=== PATIENT | female | born 1985 | race Hispanic/Latino ===

== ENCOUNTER 2018-11-22 20:38 | Emergency (ER) | payer SELFPAY ==
[2018-11-22] MEDS ORDERED: NA CHLORIDE 0.9% 1,000 ML ONE ×2 (21:40→23:24)
[2018-11-22 22:02] LABS: Urine Blood NEGATIVE (NEG); Urine Glucose 2+ (NEG); Urine Protein NEGATIVE (NEG)
[2018-11-22 22:07] LABS: Absolute Lymphocytes (CBC) 2.6 K/uL (0.7-4.9); Basophils % 0.6 % (0-1.3); Hematocrit 36.4 % (36.0-45.0); Lymphocytes % 48.1 % (15.3-44.8); MPV 9.1 fL (7.6-11.3)
[2018-11-22 22:15] LABS: Urine Bacteria <20 /HPF (<20); Urine Culture Reflex Order NOT NEEDED; Urine RBC <5 /HPF (NONE SEEN)
--- NOTE | 2018-11-22 22:33 | RAD REPORT ---
EXAM DESCRIPTION: RAD - Chest Pa And Lat (2 Views) - 11/22/2018 9:46 pm CLINICAL HISTORY: headache Chest pain. COMPARISON: No comparisons FINDINGS: The lungs are clear. The heart is normal in size. No displaced fractures. IMPRESSION: No acute or concerning finding suspected.
[2018-11-22 22:41] LABS: BUN Blood Urea Nitrogen 9 mg/dL (7-18); Bicarbonate 28 mmol/L (21-32); Glucose Level 150 mg/dL (74-106); Potassium 3.4 mmol/L (3.5-5.1); Sodium Level 143 mmol/L (136-145); Thyroid Stimulating Hormone 0.843 uIU/mL (0.360-3.740)
[2018-11-22] MEDS ORDERED: METOCLOPRAMIDE 5 MG TAB ONE (23:24)
--- NOTE | 2018-11-22 23:59 | EDPHYS ---
Physician Documentation [facility] Name: Ruby Araujo Age: 33 yrs Sex: Female : 1985 Arrival Date: 11/22/2018 Time: 20:43 Bed 15 Private MD: ED Physician Sean Mae HPI: 11/22 23:10 This 33 yrs old Female presents to ER via Ambulatory with complaints of snw Headache. 23:10 The patient complains of pain to the right latter day and left latter day. The patient snw describes the headache as a pressure. Onset: The symptoms/episode began/occurred usually during . Associated signs and symptoms: Pertinent positives: Photophobia sinus tenderness, blurred vision. Severity of symptoms: At its worst the pain was moderate. Headache History: Denies prior headaches. The patient has not experienced similar symptoms in the past. The patient has not recently seen a physician. 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 - Social history:: Smoking status: Patient/guardian denies using tobacco. - Ebola Screening: : No symptoms or risks identified at this time. ROS: 23:08 Constitutional: Negative for fever, chills, and weight loss, Eyes: Negative for injury, snw pain, redness, and discharge, sometimes see waves like heat rising from the pavement ENT: Negative for injury, pain, and discharge, feels pressure in her ears during child Neck: Negative for injury, pain, and swelling, Cardiovascular: Negative for chest pain, palpitations, and edema, Respiratory: Negative for shortness of breath, cough, wheezing, and pleuritic chest pain, Abdomen/GI: Negative for abdominal pain, nausea, vomiting, diarrhea, and constipation, Back: Negative for injury and pain, : Negative for injury, bleeding, discharge, and swelling, MS/Extremity: Negative for injury and deformity, Skin: Negative for injury, rash, and discoloration. 23:08 Neuro: Positive for facial pressure at bilateral temples. Exam: 23:07 Constitutional: This is a well developed, well nourished patient who is awake, alert, snw and in no acute distress. Head/Face: Normocephalic, atraumatic. Eyes: Pupils equal round and reactive to light, extra-ocular motions intact. Lids and lashes normal. Conjunctiva and sclera are non-icteric and not injected. Cornea within normal limits. Periorbital areas with no swelling, redness, or edema. ENT: Nares patent. No nasal discharge, no septal abnormalities noted. Tympanic membranes are normal and external auditory canals are clear. Oropharynx with no redness, swelling, or masses, exudates, or evidence of obstruction, uvula midline. Mucous membranes moist. Neck: Trachea midline, no thyromegaly or masses palpated, and no cervical lymphadenopathy. Supple, full range of motion without nuchal rigidity, or vertebral point tenderness. No Meningismus. Chest/axilla: Normal chest wall appearance and motion. Nontender with no deformity. No lesions are appreciated. Cardiovascular: Regular rate and rhythm with a normal S1 and S2. No gallops, murmurs, or rubs. Normal PMI, no JVD. No pulse deficits. Respiratory: Lungs have equal breath sounds bilaterally, clear to auscultation and percussion. No rales, rhonchi or wheezes noted. No increased work of breathing, no retractions or nasal flaring. Abdomen/GI: Soft, non-tender, with normal bowel sounds. No distension or tympany. No guarding or rebound. No evidence of tenderness throughout. Back: No spinal tenderness. No costovertebral tenderness. Full range of motion. Skin: Warm, dry with normal turgor. Normal color with no rashes, no lesions, and no evidence of cellulitis. MS/ Extremity: Pulses equal, no cyanosis. Neurovascular intact. Full, normal range of motion. Psych: Awake, alert, with orientation to person, place and time. Behavior, mood, and affect are within normal limits. 23:07 Neuro: Orientation: is normal, Mentation: is normal, Memory: is normal, Cranial nerves: grossly normal, Cerebellar function: is grossly normal, Sensation: is normal, Babinski testing is normal, seizure activity, is not displayed by the patient. Vital Signs: 21:03 BP 148 / 101; Pulse 91; Resp 16; Temp 97.5; Pulse Ox 100% on R/A; Weight 79.38 kg (R); ak1 Height 5 ft. 0 in. (152.40 cm); Pain 5/10; 22:00 BP 132 / 80; Pulse 77; Resp 16; Pulse Ox 99% on R/A; aa1 23:00 BP 135 / 82; Pulse 73; Resp 16; Temp 97.7; Pulse Ox 99% on R/A; Pain 3/10; aa1 11/23 00:33 BP 141 / 88; Pulse 79; Resp 16; Temp 97.4; Pulse Ox 98% on R/A; Pain 2/10; aa1 11/22 21:03 Body Mass Index 34.18 (79.38 kg, 152.40 cm) ak1 [place] Coma Score: 00:00 Eye Response: spontaneous(4). Verbal Response: oriented(5). Motor Response: obeys snw commands(6). Total: 15. MDM: 11/22 21:18 Patient medically screened. snw 11/23 00:00 Data reviewed: vital signs, nurses notes. Data interpreted: Pulse oximetry: on room air snw is 99 %. Interpretation: normal. Response to treatment: the patient's symptoms have markedly improved after treatment. Special discussion: I have referred the patient to see his PCP for further evaluation of high blood pressure. Based on the history and exam findings, there is no indication for further emergent testing or inpatient evaluation. I discussed with the patient/guardian the need to see the primary care provider for further evaluation of the symptoms. 11/22 21:17 Order name: Urine Microscopic Only; Complete Time: 22:19 snw 11/22 21:17 Order name: CBC with Diff; Complete Time: 22:13 snw 11/22 21:17 Order name: Chem 7; Complete Time: 22:48 snw 11/22 21:44 Order name: Urine Dipstick--Ancillary (enter results); Complete Time: 22:06 mw2 11/22 21:44 Order name: Urine --Ancillary (enter results); Complete Time: 22:06 mw2 11/22 21:17 Order name: Urine Test (obtain specimen); Complete Time: 21:43 snw 11/22 21:17 Order name: Urine Dipstick-Ancillary (obtain specimen); Complete Time: 21:43 snw 11/22 21:17 Order name: Chest Pa And Lat (2 Views) XRAY; Complete Time: 22:48 snw 11/22 22:10 Order name: Thyroid Stimulating Hormone; Complete Time: 22:48 EDMS Administered Medications: 11/22 21:45 Drug: NS 0.9% 1000 ml Route: IV; Rate: 1 bolus; Site: right antecubital; aa1 22:15 Follow up: IV Status: Completed infusion; IV Intake: 1000ml aa1 23:42 Drug: NS 0.9% 1000 ml Route: IV; Rate: 1 bolus; Site: right antecubital; aa1 11/23 00:35 Follow up: IV Status: Completed infusion; IV Intake: 800ml aa1 11/22 23:42 Drug: Reglan 10 mg Route: PO; aa1 11/23 00:30 Follow up: Response: No adverse reaction; Pain is decreased aa1 Disposition: 04:11 Co-signature as Attending Physician, Sean Mae MD. Disposition: 11/22/18 23:58 Discharged to Home. Impression: Headache, Volume depletion, Glucosuria. - Condition is Stable. - Discharge Instructions: Dehydration, Adult, General Headache Without Cause, Hypertension, Blood Glucose Monitoring, Adult, Rehydration, Adult, Form - Blood Pressure Record Sheet. - Work release form, Medication Reconciliation Form, Thank You Letter, Antibiotic Education, Prescription Opioid Use form. - Follow up: Private Physician; When: 2 - 3 days; Reason: Recheck today's complaints, Continuance of care, Re-evaluation by your physician. Follow up: Emergency Department; When: As needed; Reason: Worsening of condition. Signatures: Dispatcher [employer] [facility] Annalee Castro RN RN aa1 Joya Figueroa, ASSEMBLER ERECTOR-C ASSEMBLER ERECTOR-Csnw Cassy Welsh RN RN ak1 Sean Mae MD MD Corrections: (The following items were deleted from the chart) 11/22 21:21 21:17 Urine Test ordered. [facility] aa 22:09 22:08 THYROID STIMULAT HORMONE+C.LAB.BRZ ordered. [facility] 11/23 00:42 11/22 23:58 11/22/2018 23:58 Discharged to Home. Impression: Headache; Volume aa1 depletion; Glucosuria. Condition is Stable. Forms are Medication Reconciliation Form, Thank You Letter, Antibiotic Education, Prescription Opioid Use. Follow up: Private Physician; When: 2 - 3 days; Reason: Recheck today's complaints, Continuance of care, Re-evaluation by your physician. Follow up: Emergency Department; When: As needed; Reason: Worsening of condition. snw
--- NOTE | 2018-11-22 23:59 | ER ---
Nurse's Notes [facility] Name: Ruby Araujo Age: 33 yrs Sex: Female : 1985 Arrival Date: 11/22/2018 Time: 20:43 Bed 15 Private MD: Diagnosis: Headache;Volume depletion;Glucosuria Presentation: 11/22 21:00 Presenting complaint: Patient states: headache intermittent to forehead X2 weeks. pt ak1 c/o bilateral ear pain when nursing. Transition of care: patient was not received from another setting of care. Onset of symptoms is unknown. Risk Assessment: Do you want to hurt yourself or someone else? Patient reports no desire to harm self or others. Initial Sepsis Screen: Does the patient meet any 2 criteria? No. Patient's initial sepsis screen is negative. Does the patient have a suspected source of infection? No. Patient's initial sepsis screen is negative. Care prior to arrival: None. 21:00 Method Of Arrival: Ambulatory ak1 21:00 Acuity: SANDRO 3 ak1 Triage Assessment: 21:03 General: Appears uncomfortable, well groomed, Behavior is calm, cooperative. Neuro: ak1 Level of Consciousness is awake, alert, obeys commands, Oriented to person, place, time, situation, Nipple Maker are equal bilaterally Moves all extremities. 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 - Social history:: Smoking status: Patient/guardian denies using tobacco. - Ebola Screening: : No symptoms or risks identified at this time. Screenin:30 Abuse screen: Denies threats or abuse. Denies injuries from another. Nutritional aa1 screening: No deficits noted. Tuberculosis screening: No symptoms or risk factors identified. Fall Risk None identified. Assessment: 21:30 General: Appears in no apparent distress. comfortable, Behavior is calm, cooperative, aa1 appropriate for age. Pain: Complains of pain in left bahai and right bahai Quality of pain is described as aching, throbbing, Is continuous. Neuro: Level of Consciousness is awake, alert, obeys commands, Oriented to person, place, time, situation, Moves all extremities. Full function Gait is steady, Speech is normal, Pupils are PERRLA, Reports headache. Respiratory: Airway is patent Respiratory effort is even, unlabored, Respiratory pattern is regular, symmetrical. GI: No signs and/or symptoms were reported involving the gastrointestinal system. : No signs and/or symptoms were reported regarding the genitourinary system. EENT: No signs and/or symptoms were reported regarding the EENT system. Derm: Skin is intact, is healthy with good turgor, Skin is pink, warm \T\ dry. Musculoskeletal: Circulation, motion, and sensation intact. Capillary refill < 3 seconds. 22:18 Reassessment: Patient appears in no apparent distress at this time. Patient and/or aa1 family updated on plan of care and expected duration. Pain level reassessed. Patient is alert, oriented x 3, equal unlabored respirations, skin warm/dry/pink. Awaiting lab results. 23:44 Reassessment: Patient appears in no apparent distress at this time. Patient and/or aa1 family updated on plan of care and expected duration. Pain level reassessed. Patient is alert, oriented x 3, equal unlabored respirations, skin warm/dry/pink. Pt reports headache has improved. 2nd liter bolus infusing. 11/23 00:33 Reassessment: Patient appears in no apparent distress at this time. Patient is alert, aa1 oriented x 3, equal unlabored respirations, skin warm/dry/pink. Discussed d/c \T\ f/u instructions with pt; denies questions or concerns at this time. Ambulatory to lobby with steady gait. Patient states feeling better. Patient states symptoms have improved. Vital Signs: 11/22 21:03 BP 148 / 101; Pulse 91; Resp 16; Temp 97.5; Pulse Ox 100% on R/A; Weight 79.38 kg (R); ak1 Height 5 ft. 0 in. (152.40 cm); Pain 5/10; 22:00 BP 132 / 80; Pulse 77; Resp 16; Pulse Ox 99% on R/A; aa1 23:00 BP 135 / 82; Pulse 73; Resp 16; Temp 97.7; Pulse Ox 99% on R/A; Pain 3/10; aa1 11/23 00:33 BP 141 / 88; Pulse 79; Resp 16; Temp 97.4; Pulse Ox 98% on R/A; Pain 2/10; aa1 11/22 21:03 Body Mass Index 34.18 (79.38 kg, 152.40 cm) ak1 [place] Coma Score: 00:00 Eye Response: spontaneous(4). Verbal Response: oriented(5). Motor Response: obeys snw commands(6). Total: 15. ED Course: 11/22 20:43 Patient arrived in ED. cf2 21:01 Triage completed. ak1 21:03 Arm band placed on Patient placed in an exam room, Patient notified of wait time. ak1 21:18 Joya Figueroa FNP-C is [facility]. snw 21:18 Sean Mae MD is Attending Physician. snw 21:18 Annalee Castro, AMEYA is Primary Nurse. aa1 21:30 Patient has correct armband on for positive identification. Bed in low position. Call aa1 light in reach. Pulse ox on. NIBP on. Warm blanket given. 21:42 Initial lab(s) drawn, by me, sent to lab. Urine collected: clean catch specimen, clear, jd2 Amount Voided: 250mL. Inserted saline lock: 20 gauge in right antecubital area, using aseptic technique. Blood collected. 21:47 Chest Pa And Lat (2 Views) XRAY In Process Unspecified. EDMS 22:11 Lab(s) recollected, by me, sent to lab. aa1 11/23 00:33 No provider procedures requiring assistance completed. IV discontinued, intact, aa1 bleeding controlled, No redness/swelling at site. Pressure dressing applied. Administered Medications: 11/22 21:45 Drug: NS 0.9% 1000 ml Route: IV; Rate: 1 bolus; Site: right antecubital; aa1 22:15 Follow up: IV Status: Completed infusion; IV Intake: 1000ml aa1 23:42 Drug: NS 0.9% 1000 ml Route: IV; Rate: 1 bolus; Site: right antecubital; aa1 11/23 00:35 Follow up: IV Status: Completed infusion; IV Intake: 800ml aa1 11/22 23:42 Drug: Reglan 10 mg Route: PO; aa1 11/23 00:30 Follow up: Response: No adverse reaction; Pain is decreased aa1 Intake: 11/22 22:15 IV: 1000ml; Total: 1000ml. aa1 11/23 00:35 IV: 800ml; Total: 1800ml. aa1 Outcome: 11/22 23:58 Discharge ordered by MD. glover 11/23 00:33 Discharged to home ambulatory, with significant other. aa1 Condition: good Discharge instructions given to patient, significant other, Instructed on discharge instructions, follow up and referral plans. medication usage, Demonstrated understanding of instructions, follow-up care, medications. 00:42 Patient left the ED. aa1 Signatures: Dispatcher [employer] EDMS Annalee Castro RN RN aa1 Joya Figueroa, SUSTAINABILITY PROJECT COORDINATOR-C SUSTAINABILITY PROJECT COORDINATOR-Csnw Cassy Welsh RN RN ak1 Aracelis Lindsey Celesta cf2 Corrections: (The following items were deleted from the chart) 11/22 21:13 21:00 Presenting complaint: Patient states: headache intermittent to forehead X2 weeks. ak1 pt c/o bilateral ear pain when . ak1
[2018-11-23 01:46] VITALS: BP 141/88; TEMP 97.4; O2SAT 98
== END 2018-11-23 00:42 | disposition home or self-care (01) ==
LOC: ER 20:38
DX: R51 Headache (principal); E86.9 Volume depletion, unspecified; R81 Glycosuria
CPT/HCPCS: 36415; 71046; 80048; 81003; 81015; 81025; 84443; 85025; 96360; 99284; J7030

== ENCOUNTER 2019-12-24 22:00 | Emergency (ER) | payer SELFPAY ==
--- OUTSIDE RECORDS SUMMARY | 2019-12-24 22:03 | XMS REPORT | Summary of Care ---
:1985 Author Organization [facility] - Health Address [address] [place] [address] Care Team Providers Name Role Phone Maxim Osei [facility] Primary Care Provider Encounter Details Date Type Department Care Team Description 08/24/2019 Orders Only [facility] Doctor Unassigned, No [address] [facility] [place] [address] [address] [id number] Allergies No Known Allergiesdocumented as of this encounter (statuses as of 11/16/2019) Medications Medication Sig Dispensed Refills Start Date End Date Status hydroCHLOROthiazide 50 mg Take 50 mg by 0 Active tablet mouth daily. norethindrone 0.35 mg Take 1 tablet 3 Package 3 08/11/2019 Active tabletIndications: by mouth control counseling daily. 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 09/09/2019 Elevated blood pressure reading without diagnosis of h ypertension 08/24/2019 Well woman exam 06/09/2018 Contraceptive management 06/09/2018 Obesity (BMI 30-39.9) 03/30/2018 Tetanus, diphtheria, and acellular pertussis (Tdap) va ccination declined 03/03/2018 History of anxiety 09/02/2017 Other depression 03/12/2017 documented as of this encounter (statuses as of 11/16/2019) Resolved Problems Problem Noted Date Resolved Date Routine follow-up 05/17/2018 06/09/2018 Postoperative state 04/30/2018 06/09/2018 Overview: S/p primary on 04/23/2018 Mild preeclampsia 04/30/2018 05/17/2018 Headache 04/23/2018 06/09/2018 Blurry vision 04/23/2018 04/30/2018 38 weeks gestation of 04/23/2018 05/01/19 19 Neck pain 04/16/2018 04/30/2018 Gestational hypertension affecting sixth 9 04/30/2018 Nausea vomiting and diarrhea 04/02/2018 04/30/2018 Dyspepsia 04/02/2018 04/30/2018 Constipation during 03/31/2018 04/30/2018 Need for Tdap vaccination 03/03/2018 04/30/2018 Anemia of mother in , antepartum 02/05/2018 04/30/2018 Acute midline low back pain without sciatica 11/25/2017 06/09/2018 Abnormal maternal glucose tolerance, antepartum 09/03/2017 04/30/2018 Overview: passed 3hr Multiparity 09/02/2017 05/17/2018 Supervision of high-risk 09/02/201704/30 Fatigue 03/12/2017 09/02/2017 Mastitis, left, acute 01/21/2017 09/02/2017 Bruising 12/01/2016 09/02/2017 Well woman exam 04/30/2016 09/02/2017 Obesity affecting 04/30/2016 04/30/2018 anemia 04/10/2016 05/05/2017 Encounter for other general counseling or advice on 04/10/19 17 09/02/2017 contraception Dizziness 04/10/2016 04/10/2016 care and examination of lactating mother 04/10/19 17 04/30/2016 Liveborn infant, of [place] , born in hospital by 03/13/2016 04/10/2016 vaginal delivery Anemia affecting in third trimester 03/13/2016 04/10/2016 35 weeks gestation of 03/12/2016 04/10/19 17 Pelvic pressure in , antepartum, third trimester 03/13/2016 Pain of round ligament affecting , antepartum 02/1403/13/2016 Dizziness and giddiness 01/08/2016 03/13/2016 Abnormal maternal glucose tolerance, antepartum 12/26/2015 03/13/2016 Overview: Abnormal 28w 1hr GTT, PASSED 3HR Constipation during 10/23/2015 03/13/2016 Glucosuria 09/19/2015 03/13/2016 Anxiety 08/21/2015 09/02/2017 Multiparity 08/02/2015 04/10/2016 Supervision of high risk , antepartum 08/02/2015 03/13/2016 History of delivery, currently 08/02/2015 08/02/2015 Obesity affecting 08/02/2015 04/10/2016 History of oligohydramnios in prior , currently 03/13/2016 LGSIL (low grade squamous intraepithelial lesion) on Pap sme ar 03/18/2010 08/02/2015 Overview: Refer 6 wk pp to colpo documented as of this encounter (statuses as of 11/16/2019) Immunizations Name Administration Dates Next Due Rubella 08/22/2009 TDAP 12/25/2015 (Deferred: Patient Refused) Td 02/16/2007 documented as of this encounter Social History Tobacco Use Types Packs/Day Years Used Date Never Smoker Smokeless Tobacco: Never Used Comments: denies smoke exposure Alcohol Use Drinks/Week oz/Week Comments No 0 Standard drinks or equivalent 0.0 Sex Assigned at Date Recorded Not on file COVID-19 Exposure Response Date Recorded In the last month, have you been in contact with No / Unsure 09/09/2019 10:44 AM CDT someone who was confirmed or suspected to have Coronavirus / COVID-19? documented as of this encounter Last Filed Vital Signs Not on filedocumented in this encounter Plan of Treatment Health Maintenance Due Date Last Done Comments INFLUENZA VACCINE (#1) 2019 DTaP,Tdap,and Td Vaccines 03/01/2020 02/16/2007 Postpo stacie from (1 - Tdap) 06/07/2002 ([place]) Depression Screening 08/10/2020 08/11/2019, 08/11/2019 PAP SMEAR 08/10/2022 08/11/2019, 06/29/2014, 06/27/2013, Additional history exists PNEUMOCOCCAL 0-64 YEARS Aged Out No longe r eligible COMBINED SERIES based on patient 's age to complete this topic documented as of this encounter Procedures Procedure Name Priority Date/Time Associated Diagnosis Comme nts PATIENT QUESTIONNAIRE Routine 08/24/2019 12:01 AM CDT documented in this encounter Results Not on filedocumented in this encounter Insurance Payer Benefit Plan / Subscriber ID Effective Dates Phone Addre ss Type Group RMP FAMILY FAMILY PLANNING [id number] 2018-Pres [facility] Agency PLANNING DEANDRA DEANDRA [phone]% ent [id number] [place] [address] documented as of this encounter Advance Directives Type Date Recorded Patient Rn Progressive Care Explanati on Advance Directives and Living Will Power of Netting Weaver Name Relationship Healthcare Agent Communication Relationship Brent Cullen Spouse Health Care Agent Gonzalo Araujo Father [facility] Care Agent (Mobile) Ciara Bartono Mother [facility] Care [phone] Agent (Mobile)
--- OUTSIDE RECORDS SUMMARY | 2019-12-24 22:03 | XMS REPORT | Continuity of Care Document ---
:1985 Author Organization [facility] t Address [address] [place] [address] Care Team Providers Name Role Phone Scout SHAVER Attending Clinician Juany JENSEN Attending Clinician Resident Rory Attending Clinician Unavailable Doctor Unassigned, Name Attending Clinician Unavailable Problems This patient has no known problems. Allergies, Adverse Reactions, Alerts This patient has no known allergies or adverse reactions. Medications This patient has no known medications. Procedures This patient has no known procedures. Encounters Start End Encounter Admission Attending Care Care Encounter Source Date/Time Date/Time Type Type Clinicians Facility Department ID 2019-10-27 2019-10-27 Telephone NADYA Butterfield [id number] 00:00:00 00:00:00 [facility] [id number] [facility] [id number] 2019-10-04 2019-10-04 Telephone NADYA Harrington [id number] 00:00:00 00:00:00 [facility] [id number] [facility] [id number] 113 2019-09-19 2019-09-19 Telephone NADYA Butterfield [id number] 00:00:00 00:00:00 [facility] [id number] [facility] [id number] 113 2019-09-12 2019-09-12 [facility] [id number] 00:00:00 00:00:00 [facility] [id number] [facility] [id number] 2019-09-09 2019-09-09 Office [facility] [id number] 10:47:23 12:32:[address] [facility] [id number] [facility] [id number] 2019-08-24 2019-08-24 Orders Doctor AUDREY [id number] 00:00:00 00:00:00 Only Unassigned, [facility] [id number] [place] [facility] [id number] Results This patient has no known results.
--- OUTSIDE RECORDS SUMMARY | 2019-12-24 22:03 | XMS REPORT | Summary of Care ---
:1985 Author Organization [facility] Address [address] [place] [address] Care Team Providers Name Role Phone [facility] Reason for Visit Reason Comments Rx Concern/Question Encounter Details Date Type Department Care Team Description 10/27/2019 Telephone [facility] Natalie Butterfield FN P Rx Concern/Question [address], [address] [place] [address] [place] [address] Allergies No Known Allergiesdocumented as of this encounter (statuses as of 11/09/2019) Medications Medication Sig Dispensed Refills Start Date End Date Status hydroCHLOROthiazide 50 mg Take 50 mg by 0 Active tablet mouth daily. norethindrone 0.35 mg Take 1 tablet 3 Package 3 08/11/2019 Active tabletIndications: by mouth control counseling daily. hydroCHLOROthiazide 25 mg Take 1 tablet 30 tablet 1 09/09/2019 Active tabletIndications: by mouth Hypertension, unspecified daily. type lisinopril 10 mg Take 1 tablet 30 tablet 1 09/09/2019 Active tabletIndications: by mouth Hypertension, unspecified daily. type documented as of this encounter (statuses as of 11/09/2019) Active Problems Patient Care Coordination Note IOL 04-29-18 7am Problem Noted Date Endometriosis in scar 09/09/2019 Elevated blood pressure reading without diagnosis of h ypertension 08/24/2019 Well woman exam 06/09/2018 Contraceptive management 06/09/2018 Obesity (BMI 30-39.9) 03/30/2018 Tetanus, diphtheria, and acellular pertussis (Tdap) va ccination declined 03/03/2018 History of anxiety 09/02/2017 Other depression 03/12/2017 documented as of this encounter (statuses as of 11/09/2019) Resolved Problems Problem Noted Date Resolved Date [...] as of this encounter (statuses as of 11/09/2019) Immunizations Name Administration Dates Next Due Rubella 08/22/2009 TDAP 12/25/2015 (Deferred: Patient Refused) Td 02/16/2007 documented as of this encounter Social History Tobacco Use Types Packs/Day Years Used Date Never Smoker Smokeless Tobacco: Never Used Comments: denies smoke exposure Alcohol Use Drinks/Week oz/Week Comments No 0 Standard drinks or equivalent 0.0 Sex Assigned at Date Recorded Not on file documented as of this encounter Last Filed Vital Signs Not on filedocumented in this encounter Miscellaneous Notes Telephone Encounter - Chivo Harrington MD - 11/09/2019 8:43 AM CDTAttempted to call patient without answer. 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 Unfortunately, due to her household income and the number of children shehas who receive Medicaid, she does not qualify for surgical funding. I have spoken to her in the past about her limited options if [facility] care application was to be denied, which would be for her to apply for naturalization for [place] Citizenship, and then I would be able to file a casebook application for her surgery. Will attempt to call her back later today or this week. Chivo Harrington MD elephone Encounter - Kika Roberts - 10/27/2019 11:20 AM CDTPatient is requesting a call from a nurse. 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
--- OUTSIDE RECORDS SUMMARY | 2019-12-24 22:04 | XMS REPORT | Summary of Care ---
:1985 Author Organization [facility] Address [address] [place] [address] Care Team Providers Name Role Phone Maxim Osei [facility] Primary Care Provider Reason for Visit Reason Comments Rx Concern/Question Notification Closing encounter Encounter Details Date Type Department Care Team Description 10/04/2019 Telephone [facility] Chivo Harrington MD Rx Concern/Question; [address] Notification (Closing [facility] [place], [place] encounter) [address] [address] [address], 7[address] floor [phone] [place] [address] Allergies No Known Allergiesdocumented as of this encounter (statuses as of 12/08/2019) Medications Medication Sig Dispensed Refills Start Date [...] as of this encounter (statuses as of 12/08/2019) Active Problems Patient Care Coordination Note IOL 04-29-18 7am Problem Noted Date Endometriosis in scar 09/09/2019 Elevated blood pressure reading without diagnosis of h ypertension 08/24/2019 Well woman exam 06/09/2018 Contraceptive management 06/09/2018 Obesity (BMI 30-39.9) 03/30/2018 Tetanus, diphtheria, and acellular pertussis (Tdap) va ccination declined 03/03/2018 History of anxiety 09/02/2017 Other depression 03/12/2017 documented as of this encounter (statuses as of 12/08/2019) Resolved Problems Problem Noted Date Resolved Date [...] as of this encounter (statuses as of 12/08/2019) Immunizations Name Administration Dates Next Due Rubella [...] this encounter Miscellaneous Notes Telephone Encounter - Autumn Hannah RN - 12/08/2019 9:22 PM CDTAccess Center: [facility] Open Encounter Maintenance Chart Review: see encounter from 10/27/2019. Nurse Note: RN closing encounter in [facility] r/t clinical action items completed. Autumn Hannah RN [facility] Access Center Triage Nurse elephone Encounter - Ian Nixon - 10/04/2019 4:39 PM CDTPatient is calling back as she has been denied indigent healthcare and is wondering what to do aboutthe surgery. documented in this encounter Plan of Treatment [...] ss Type Group [employer]ILY [employer]ILY PLANNING [id number] 2018-[employer] PLANNING DEANDRA DEANDRA 101-150% ent [id number] [place] [address] documented as of this encounter Advance Directives Type Date Recorded Patient Art Gilder Explanati on Advance Directives and Living Will Power of Radiologist Physician Name Relationship Healthcare Agent Communication Relationship Brent Cullen Spouse Health Care Agent Gonzalo Araujo Father First [facility] Health Care Agent (Mobile) Ciara Araujo Mother [facility] Care Agent (Mobile)
[2019-12-24 22:35] LABS: Absolute Lymphocytes (CBC) 3.3 K/uL (0.7-4.9); Hematocrit 41.4 % (36.0-45.0); Lymphocytes % 41.7 % (15.3-44.8); MPV 9.5 fL (7.6-11.3)
[2019-12-24 22:40] LABS: Urine Blood TRACE (NEG); Urine Glucose NEGATIVE (NEG); Urine Protein TRACE (NEG); Urine Specific Gravity >1.030 (1.005-1.030)
[2019-12-24] MEDS ORDERED: KETOROLAC 30 MG/ML INJ ONE (22:49)
[2019-12-24] MEDS ORDERED: NA CHLORIDE 0.9% 1,000 ML ONE (22:50)
[2019-12-24 22:53] LABS: ALT/SGPT 30 U/L (12-78); AST/SGOT 13 U/L (15-37); Albumin 3.8 g/dL (3.4-5.0); Alkaline Phosphatase 102 U/L (45-117); BUN Blood Urea Nitrogen 9 mg/dL (7-18); Bicarbonate 30 mmol/L (21-32); Bilirubin Direct < 0.1 mg/dL (0-0.2); Bilirubin Total 0.2 mg/dL (0.2-1.0); Glucose Level 155 mg/dL (74-106); Lipase 152 U/L (73-393); Potassium 3.2 mmol/L (3.5-5.1); Protein, Total 8.4 g/dL (6.4-8.2); Sodium Level 138 mmol/L (136-145)
[2019-12-24] MEDS ORDERED: ONDANSETRON 4 MG/2 ML VIAL ONE (22:55)
--- NOTE | 2019-12-25 00:29 | EDPHYS ---
Physician Documentation [facility] Name: Ruby Araujo Age: 34 yrs Sex: Female : 1985 Arrival Date: 12/24/2019 Time: 22:02 Bed 19 Private MD: ED Physician Mikel Armas HPI: 12/24 06:43 This 34 yrs old Female presents to ER via Ambulatory with complaints of Lower tw4 Abdominal Pain. 06:43 The patient presents with abdominal pain. Onset: The symptoms/episode began/occurred tw4 today. The symptoms do not radiate. Associated signs and symptoms: none. The symptoms are described as sharp. Modifying factors: The symptoms are alleviated by nothing, the symptoms are aggravated by nothing. Severity of pain: At its worst the pain was moderate in the emergency department the pain is unchanged. The patient has not experienced similar symptoms in the past. 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 - Social history:: Smoking status: Patient/guardian denies using. ROS: 12/24 06:43 Constitutional: Negative for fever, chills, and weight loss, Eyes: Negative for injury, tw4 pain, redness, and discharge, Cardiovascular: Negative for chest pain, palpitations, and edema, Respiratory: Negative for shortness of breath, cough, wheezing, and pleuritic chest pain, Back: Negative for injury and pain, MS/Extremity: Negative for injury and deformity, Skin: Negative for injury, rash, and discoloration, Neuro: Negative for headache, weakness, numbness, tingling, and seizure. Abdomen/GI: Positive for abdominal pain, Negative for nausea and vomiting, nausea, vomiting, and diarrhea, nausea, vomiting, diarrhea, constipation, black/tarry stool, rectal pain, rectal bleeding, bowel incontinence. Exam: 06:43 Constitutional: This is a well developed, well nourished patient who is awake, alert, tw4 and in no acute distress. Head/Face: Normocephalic, atraumatic. Chest/axilla: Normal chest wall appearance and motion. Nontender with no deformity. No lesions are appreciated. Cardiovascular: Regular rate and rhythm with a normal S1 and S2. No gallops, murmurs, or rubs. Normal PMI, no JVD. No pulse deficits. Respiratory: Lungs have equal breath sounds bilaterally, clear to auscultation and percussion. No rales, rhonchi or wheezes noted. No increased work of breathing, no retractions or nasal flaring. Back: No spinal tenderness. No costovertebral tenderness. Full range of motion. Skin: Warm, dry with normal turgor. Normal color with no rashes, no lesions, and no evidence of cellulitis. MS/ Extremity: Pulses equal, no cyanosis. Neurovascular intact. Full, normal range of motion. Neuro: Awake and alert, GCS 15, oriented to person, place, time, and situation. Cranial nerves II-XII grossly intact. Motor strength 5/5 in all extremities. Sensory grossly intact. Cerebellar exam normal. Normal gait. 06:43 Abdomen/GI: Inspection: abdomen appears normal, Bowel sounds: normal, Palpation: moderate abdominal tenderness, in the suprapubic area and right lower quadrant. Vital Signs: 12/23 22:16 BP 136 / 101; Pulse 116; Resp 18; Temp 98.4; Pulse Ox 100% ; Weight 86.18 kg; Height 5 wh ft. 0 in. (152.40 cm); Pain 7/10; 23:30 BP 134 / 98; Pulse 100; Resp 18; Pulse Ox 100% on R/A; 12/24 00:53 BP 138 / 82; Pulse 82; Resp 18; Pulse Ox 100% on R/A; 12/23 22:16 Body Mass Index 37.11 (86.18 kg, 152.40 cm) MDM: 12/23 22:12 Patient medically screened. tw4 12/24 06:43 Differential diagnosis: acute coronary syndrome, appendicitis, bowel obstruction, tw4 diverticulitis, gastritis, Hepatitis, Ovarian Torsion, Ureterolithiasis, urinary tract infection. Data reviewed: vital signs, nurses notes. Data reviewed: lab test result(s), CBC, electrolytes, hepatic panel. Counseling: I had a detailed discussion with the patient and/or guardian regarding: the historical points, exam findings, and any diagnostic results supporting the discharge/admit diagnosis, lab results, radiology results. 06:45 Data reviewed: radiologic studies, CT scan. Data interpreted: Pulse oximetry: tw4 Interpretation: normal. Special discussion: I discussed with the patient/guardian in detail that at this point there is no indication for admission to the hospital. It is understood, however, that if the symptoms persist or worsen the patient needs to return immediately for re-evaluation. 12/23 22:16 Order name: Basic Metabolic Panel; Complete Time: 23:56 tw4 12/23 22:16 Order name: CBC with Diff; Complete Time: 23:56 tw4 12/23 22:16 Order name: Hepatic Function; Complete Time: 23:56 tw4 12/23 22:16 Order name: Lipase; Complete Time: 23:56 [facility] 12/23 22:37 Order name: Urine Dipstick--Ancillary (enter results); Complete Time: 23:56 [facility] 12/23 22:37 Order name: Urine --Ancillary (enter results); Complete Time: 23:56 [facility] 12/23 22:16 Order name: IV Saline Lock; Complete Time: 22:43 tw 12/23 22:16 Order name: Labs collected and sent; Complete Time: 22:43 tw4 12/23 22:31 Order name: CT Abd/Pelvis - IV Contrast Only [facility] 12/23 22:16 Order name: Urine Dipstick-Ancillary (obtain specimen); Complete Time: 22:36 tw4 12/23 22:16 Order name: Urine Test (obtain specimen); Complete Time: 22:36 tw4 Administered Medications: 12/23 22:39 Drug: NS 0.9% 1000 ml Route: IV; Rate: 1 bolus; Site: right antecubital; 12/24 00:34 Follow up: Response: No adverse reaction; IV Status: Completed infusion 12/23 22:41 Drug: TORadol 30 mg Route: IVP; Site: right antecubital; 12/24 00:34 Follow up: Response: No adverse reaction 00:34 Follow up: Response: Pain is decreased 12/23 22:43 Drug: Zofran (Ondansetron) 4 mg Route: IVP; Site: right antecubital; 12/24 00:34 Follow up: Response: No adverse reaction; Nausea unchanged 00:34 Drug: Zofran (Ondansetron) 4 mg Route: IVP; Site: right antecubital; 00:56 Follow up: Response: No adverse reaction; Nausea is decreased 00:34 Drug: Potassium Effervescent Tablet 50 mEq Route: PO; 00:56 Follow up: Response: No adverse reaction Disposition: 12/25/19 00:27 Discharged to Home. Impression: Abdominal tenderness. - Condition is Stable. - Discharge Instructions: Abdominal Pain, Adult, [id number]. - Prescriptions for Bentyl 20 mg Oral Tablet - take 1 tablet by ORAL route every 6 hours As needed; 20 tablet. Protonix 40 mg Oral Tablet - take 1 tablet by ORAL route once daily; 30 tablet. Tramadol 50 mg Oral Tablet - take 1 tablet by ORAL route every 8 hours as needed; 12 tablet. - Medication Reconciliation Form, Thank You Letter, Antibiotic Education, Prescription Opioid Use form. - Follow up: Private Physician; When: Upon discharge from the Emergency Department; Reason: Recheck today's complaints, Continuance of care, Re-evaluation by your physician. - Problem is new. - Symptoms have improved. Signatures: Dispatcher [employer] Reema Donaldson Mikel Armas MD MD tw4 Corrections: (The following items were deleted from the chart) 00:56 00:27 12/25/2019 00:27 Discharged to Home. Impression: Abdominal tenderness. Condition is Stable. Forms are Medication Reconciliation Form, Thank You Letter, Antibiotic Education, Prescription Opioid Use. Follow up: Private Physician; When: Upon discharge from the Emergency Department; Reason: Recheck today's complaints, Continuance of care, Re-evaluation by your physician. Problem is new. Symptoms have improved. tw4
--- NOTE | 2019-12-25 00:29 | ER ---
Nurse's Notes [facility] Name: Ruby Araujo Age: 34 yrs Sex: Female : 1985 Arrival Date: 12/24/2019 Time: 22:02 Bed 19 Private MD: Diagnosis: Abdominal tenderness Presentation: 12/23 22:16 Chief complaint: Patient states: RLQ abd pain for the last 20 months since C Section procedure. Pt states was diagnosed with Endometriosis and that part of the placenta was left inside her that needs to be removed. Coronavirus screen: Client denies travel out of the [place] in the last 14 days. nausea. Ebola Screen: Patient negative for fever greater than or equal to 101.5 degrees Fahrenheit, and additional compatible Ebola Virus Disease symptoms Patient denies exposure to infectious person. Initial Sepsis Screen: Does the patient meet any 2 criteria? HR > 90 bpm. Does the patient have a suspected source of infection? Yes: Acute abdominal pain. Risk Assessment: Do you want to hurt yourself or someone else? Patient reports no desire to harm self or others. Onset of symptoms was December 24, 2019. 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 - Social history:: Smoking status: Patient/guardian denies using. Screenin:19 Abuse screen: Denies threats or abuse. Denies injuries from another. Nutritional screening: No deficits noted. Tuberculosis screening: No symptoms or risk factors identified. Fall Risk None identified. Assessment: 22:19 General: Appears in no apparent distress. uncomfortable, Behavior is calm, cooperative, wh appropriate for age. Pain: Complains of pain in right lower quadrant Pain does not radiate. Pain currently is 7 out of 10 on a pain scale. Quality of pain is described as sharp, Pain began years ago. Is intermittent. Neuro: Level of Consciousness is awake, alert, obeys commands, Oriented to person, place, time, situation, Appropriate for age. Cardiovascular: Capillary refill < 3 seconds. Respiratory: Airway is patent Respiratory effort is even, unlabored, Respiratory pattern is regular, symmetrical. GI: Abdomen is flat, non-distended, Abd is soft Abdomen is tender to palpation in right lower quadrant Reports lower abdominal pain, nausea. : No signs and/or symptoms were reported regarding the genitourinary system. EENT: No signs and/or symptoms were reported regarding the EENT system. Derm: Skin is intact, is healthy with good turgor, Skin is pink, warm \T\ dry. normal. Musculoskeletal: Circulation, motion, and sensation intact. 23:30 Reassessment: Patient appears in no apparent distress at this time. No changes from previously documented assessment. Patient and/or family updated on plan of care and expected duration. Pain level reassessed. Patient is alert, oriented x 3, equal unlabored respirations, skin warm/dry/pink. 12/24 00:53 Reassessment: Patient appears in no apparent distress at this time. Patient and/or family updated on plan of care and expected duration. Pain level reassessed. Patient is alert, oriented x 3, equal unlabored respirations, skin warm/dry/pink. Patient states feeling better. Patient states symptoms have improved. Vital Signs: 12/23 22:16 BP 136 / 101; Pulse 116; Resp 18; Temp 98.4; Pulse Ox 100% ; Weight 86.18 kg; Height 5 wh ft. 0 in. (152.40 cm); Pain 7/10; 23:30 BP 134 / 98; Pulse 100; Resp 18; Pulse Ox 100% on R/A; 12/24 00:53 BP 138 / 82; Pulse 82; Resp 18; Pulse Ox 100% on R/A; 12/23 22:16 Body Mass Index 37.11 (86.18 kg, 152.40 cm) ED Course: 12/23 22:02 Patient arrived in ED. cl3 22:05 Reema Calderon is Primary Nurse. 22:12 Mikel Armas MD is Attending Physician. tw4 22:18 Triage completed. 22:20 Arm band placed on right wrist. 22:20 Patient has correct armband on for positive identification. Bed in low position. Call light in reach. Side rails up X 1. Pulse ox on. NIBP on. 22:30 Inserted saline lock: 20 gauge in right antecubital area, using aseptic technique. Blood collected. 23:29 CT Abd/Pelvis - IV Contrast Only In Process Unspecified. EDRI 12/24 00:55 No provider procedures requiring assistance completed. IV discontinued, intact, bleeding controlled, No redness/swelling at site. Administered Medications: 12/23 22:39 Drug: NS 0.9% 1000 ml Route: IV; Rate: 1 bolus; Site: right antecubital; 12/24 00:34 Follow up: Response: No adverse reaction; IV Status: Completed infusion 12/23 22:41 Drug: TORadol 30 mg Route: IVP; Site: right antecubital; 12/24 00:34 Follow up: Response: No adverse reaction 00:34 Follow up: Response: Pain is decreased 12/23 22:43 Drug: Zofran (Ondansetron) 4 mg Route: IVP; Site: right antecubital; 12/24 00:34 Follow up: Response: No adverse reaction; Nausea unchanged 00:34 Drug: Zofran (Ondansetron) 4 mg Route: IVP; Site: right antecubital; 00:56 Follow up: Response: No adverse reaction; Nausea is decreased 00:34 Drug: Potassium Effervescent Tablet 50 mEq Route: PO; 00:56 Follow up: Response: No adverse reaction Outcome: 00:27 Discharge ordered by MD. clark 00:56 Discharged to home ambulatory. 00:56 Condition: stable 00:56 Discharge instructions given to patient, Instructed on discharge instructions, follow up and referral plans. no drinking with medication, no driving heavy equipment, medication usage, POC Demonstrated understanding of instructions, follow-up care, medications, POC Prescriptions given X 3. 00:56 Patient left the ED. Signatures: Dispatcher [employer] EDMS Reema Calderon Mikel Armas MD MD tw4 Cordell Kee cl3
[2019-12-25] MEDS ORDERED: ONDANSETRON 4 MG/2 ML VIAL ONE (00:42)
[2019-12-25] MEDS ORDERED: POTASSIUM 25 MEQ EFFERV TAB ONE (00:42)
[2019-12-25 01:09] VITALS: TEMP 98.4; O2SAT 100
[2019-12-25 01:21] VITALS: BP 138/82
--- NOTE | 2019-12-26 11:10 | RAD REPORT ---
EXAM DESCRIPTION: Abdomen Pelvis W Contrast CLINICAL HISTORY: 34-year-old female with RIGHT quadrant pain for 20 months since . COMPARISON: None. TECHNIQUE: CT of the abdomen and pelvis was performed following intravenous administration of contra st. Oral contrast was not administered. Multiplanar reformatted images were provided. This exam was p erformed according to our departmental dose optimization program which includes use of automated expo sure control, adjustment of the mA and/or kV according to patient size and/or use of iterative recons truction technique. FINDINGS: Chest: Evaluation through the lung bases reveals no focal opacity, pleural effusion or pne umothorax. Heart size is within normal limits. No pericardial effusion. Abdomen and pelvis: The liver, gallbladder, pancreas, spleen, bilateral kidneys and bilateral adrenal glands are within normal limits. The vessels are patent and normal in caliber. No abdominopelvic lymph nodes are noted to be pathologically enlarged by CT measurement criteria. The bowel is within normal limits without abnormal bowel wall thickness or bowel dilation. No free air. No free abdominopelvic fluid collections. The appendix is within normal limits. Thickene d appearance of the bladder wall may be secondary to incomplete distention, however can be seen in th e setting of infectious or inflammatory process. Please correlate with laboratory values. The osseous structures are within normal limits. Reticulation of the lower subcutaneous tissues moose tible with scar. IMPRESSION: 1. No specific acute intra-abdominal findings are noted to suggest etiology of the patie nt's abdominal pain. 2. Thickened appearance of the bladder wall may be secondary to incomplete distention, however can be seen in the setting of infectious or inflammatory process. Please correlate with laboratory values. 3. The appendix is within normal limits. Electronically signed by: Chelsea Navarro MD 12/24/2019 11:38 PM TEST CLERK Due to temporary technical issues with the PACS/Fluency reporting system, reports are being signed by the in house radiologist without review as a courtesy to ensure prompt reporting. The interpreting r adiologist is fully responsible for the content of the report.
== END 2019-12-25 00:56 | disposition home or self-care (01) ==
LOC: ER 22:00
DX: R10.819 Abdominal tenderness, unspecified site (principal); I10 Essential (primary) hypertension
CPT/HCPCS: 36415; 74177; 80048; 80076; 81003; 81025; 83690; 85025; 96361; 96374; 96375; 99284; J2405; J7030; Q9967

== ENCOUNTER 2021-07-22 23:46 | Emergency (ER) | payer SELFPAY ==
--- OUTSIDE RECORDS SUMMARY | 2021-07-22 23:48 | XMS REPORT | Continuity of Care Document ---
:1985 Author Organization [facility] t Address [address] [place] [address] Care Team Providers Name Role Phone Maxim FLYNN Primary Care Physician Unavailable Maxim FLYNN Attending Clinician Unavailable Maxim Peck Attending Clinician Scout SHAVER Attending Clinician Juany JENSEN Attending Clinician Resident Rory Attending Clinician Unavailable Doctor Unassigned, Name Attending Clinician Unavailable Payers Payer Name Policy Type Policy Number Effective Date Expiration Date Nga cheung [employer] [id number] 2021 DEANDRA 101-150% 00:00:00 Problems Condition Condition Condition Status Onset Resolution Last Treating Co mments Source Name Details Category Date Date Treatment Clinician Date 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 U nivers sis in sis in 7-24 ity of scar scar 00:00: [address] Essential Essential Disease Active 2020-0 Uni vers hypertensi hypertensi 7-08 it y of on, benign on, benign 00:[place] Contracept Contracept Disease Active 2019-0 U nivers kylie kylie 4-24 ity of management management 00:00: xa [facility] Obesity Obesity Disease Active 2019-0 Univers (BMI (BMI 2-12 ity of 30-39.9) 30-39.9) 00:00: [place] 00 [facility] Tetanus, Tetanus, Disease Active Unive rs diphtheria diphtheria 1-16 it y of , and , and 00:00: [place] acellular acellular 00 Medi jimmy pertussis pertussis Bran ch (Tdap) (Tdap) vaccinatio vaccinatio n declined n declined History of History of Disease Active U nivers anxiety anxiety 7-18 ity of 00:00: [place] 00 [facility] Other Other Disease Active Univers depression depression 1-25 it y of 00:00: [place] 00 [facility] Pain Pain Disease Active Univers pelvic pelvic 1-20 ity of 00:00: [place] 00 [facility] Branch Allergies, Adverse Reactions, Alerts Allergy Allergy Status Severity Reaction(s) Onset Inactive Treating Comm ents Source Name Type Date Date Clinician NO KNOWN Drug Active Univers ALLERGIE Class ity of S [facility] Social History Social Habit Start Date Stop Date Quantity Comments Source Exposure to 2021-05-27 2021-06-06 Not sure [facility] SARS-CoV-2 00:00:00 08:24:00 [facility] (event) Branch Alcohol intake 2021-03-15 2021-03-15 0 /d University of 00:00:00 00:00:00 [facility] Tobacco Comment 2017-09-02 2017-09-02 denies smoke Univers ity of 00:00:00 00:00:00 exposure [facility] Tobacco use and 2012-06-23 2012-06-23 Never used Universit y of exposure 00:00:00 00:00:00 [facility] Sex Ass[birth year] Universit y of 00:00:00 00:00:00 [facility] Smoking Status Start Date Stop Date Source Never smoker [facility] Medications Ordered Filled Start Stop Current Ordering Indication Dosage Frequency Signature Comments Components Source Medication Medication Date Date Medication? Clinician (SIG) Name Name atorvastati Yes 20mg Take 20 mg Univers n 20 mg 1-28 by mouth ity of tablet 08:57: at [place] [address] bedtime. Medical Branch atorvastati Yes 20mg Take 20 mg Univers n 20 mg 1-28 by mouth ity of tablet 08:57: at [place] 33 bedtime. Medical Branch carvediloL Yes 3.125mg Take 3.125 Univers 3.125 mg 1-28 mg by ity of tablet 08:56: mouth 2 [place] 50 (two) Medical times Branch daily with meals. carvediloL Yes 3.125mg Take 3.125 Univers 3.125 mg 1-28 mg by ity of tablet 08:56: mouth 2 [place] 50 (two) Medical times [place] daily with meals. norgestimat Yes Take by Un fito e-ethinyl 1-28 mouth. ity of estradiol 08:19: [place] (SPRINTEC, 08 Medical 28, ORAL) Branch norgestimat Yes Take by Un fito e-ethinyl 1-28 mouth. ity of estradiol 08:19: [place] (SPRINTEC, 08 Medical 28, ORAL) Branch norethindro Yes [id number] 1{tbl} Take 1 Univers ne 0.35 mg 1-28 tablet by ity of tablet 00:00: mouth [place] 00 daily. Medical Branch norethindro Yes [id number] 1{tbl} Take 1 Univers ne 0.35 mg 1-28 tablet by ity of tablet 00:00: mouth [place] 00 daily. [facility] Immunizations Ordered Filled Immunization Date Status Comments [facility] Immunization Name Name Rubella 2009-08-22 Completed University 00:00:00 [facility] Rubella 2009-08-22 Completed University 00:00:00 [facility] Td 2007-02-16 Completed University of 00:00:00 [facility] Td 2007-02-16 Completed [facility] 00:00:00 [facility] Vital Signs Vital Name Observation Time Observation Value Comments Source Systolic blood 2021-06-06 13:24:00 136 mm[Hg] Univer sity of pressure [facility] Diastolic blood 2021-06-06 13:24:00 88 mm[Hg] Unive rsity of [facility] Heart rate 2021-06-06 13:23:00 88 /min [facility] Body temperature 2021-06-06 13:23:00 36.72 Anjali [facility] Respiratory rate 2021-06-06 13:23:00 20 /min [facility] Body height 2021-06-06 13:23:00 154.9 cm [facility] Body weight 2021-06-06 13:23:00 89.585 kg [facility] BMI 2021-06-06 13:23:00 37.32 kg/m2 [facility] Procedures This patient has no known procedures. Encounters Start End Encounter Admission Attending Care Care Encounter Source Date/Time Date/Time Type Type Clinicians Facility Department ID 2021-06-06 2021-06-06 Outpatient R R[facility] [id number] Univers 08:15:00 09:12:10 DANUTA sainz [facility] 2021-06-06 2021-06-06 [facility] [id number] Univers 08:15:00 09:12:10 Visit Danuta Pan [employer] [id number] Pérez as MATERNAL [id number] [facility] ical & CHILD [address] [place] [address] 2019-10-27 2019-10-27 [facility] [id number] 00:00:00 00:00:00 [facility] [id number] [facility] [id number] 2019-10-04 2019-10-04 Telephone Harrington [facility] [id number] 00:00:00 00:00:00 [facility] [id number] CLINICS [id number] 2019-09-19 2019-09-19 Telephone Scout [facility] [id number] 00:00:00 00:00:00 [facility] [id number] [facility] [id number] 2019-09-12 2019-09-12 [facility] [id number] 00:00:00 00:00:00 [facility] [id number] [facility] [id number] 2019-09-09 2019-09-09 [facility] [id number] 10:47:23 12:32:13 Visit [address] [facility] [id number] CLINICS [id number] 2019-08-24 2019-08-24 Orders Doctor AUDREY [id number] 00:00:00 00:00:00 Only Unassigned, MICH [id number] [place] [facility] [id number] Results This patient has no known results.
[2021-07-23 00:29] LABS: Urine Blood 3+ (Negative); Urine Glucose Negative (Negative); Urine Protein 3+ (Negative); Urine Specific Gravity >=1.030 (1.005-1.030); Urine pH 5.5 (5.0-7.0)
[2021-07-23] MEDS ORDERED: KETOROLAC 30 MG/ML INJ ONE (00:35)
[2021-07-23 00:51] LABS: Absolute Lymphocytes (CBC) 2.4 K/uL (0.7-4.9); Lymphocytes % 48.2 % (15.3-44.8); MPV 8.6 fL (7.6-11.3); RBC Red Blood Cell Count 4.79 M/uL (3.86-4.86)
[2021-07-23 01:16] LABS: Potassium 3.8 mmol/L (3.5-5.1)
--- NOTE | 2021-07-23 01:23 | ER ---
Nurse's Notes [facility] Name: Ruby Araujo Age: 36 yrs Sex: Female : 1985 Arrival Date: 07/22/2021 Time: 23:48 Bed 2 Private MD: Diagnosis: Acute cystitis;Elevated blood pressure reading Presentation: 07/22 23:53 Chief complaint: Patient states: High blood pressure \\T\\ headache X 3 days. Suprapubic ld1 cramping/redness to area. Coronavirus screen: At this time, the client does not indicate any symptoms associated with coronavirus-19. Ebola Screen: No symptoms or risks identified at this time. Initial Sepsis Screen: Does the patient meet any 2 criteria? No. Patient's initial sepsis screen is negative. Does the patient have a suspected source of infection? No. Patient's initial sepsis screen is negative. Risk Assessment: Do you want to hurt yourself or someone else? Patient reports no desire to harm self or others. Onset of symptoms was July 22, 2021. 23:53 Method Of Arrival: Ambulatory ld1 23:53 Acuity: SANDRO 3 ld1 Triage Assessment: 23:55 General: Appears in no apparent distress. comfortable, Behavior is calm, cooperative, ld1 appropriate for age. Pain: Complains of pain in abdomen and pelvis Pain does not radiate. Pain currently is 6 out of 10 on a pain scale. Quality of pain is described as throbbing. EENT: No signs and/or symptoms were reported regarding the EENT system. Neuro: Level of Consciousness is awake, alert, obeys commands, Oriented to person, place, time, situation. Cardiovascular: Capillary refill < 3 seconds Patient's skin is warm and dry. Respiratory: Airway is patent Respiratory effort is even, unlabored. GI: Abdomen is round non-distended. : No signs and/or symptoms were reported regarding the genitourinary system. Derm: No signs and/or symptoms reported regarding the dermatologic system. [employer] ART[employer]: 23:55 LMP 07/22/2021 ld1 Historical: - Allergies: 23:55 No Known Allergies; ld1 - Home Meds: 23:55 None [Active]; ld1 - PMHx: 23:55 Hypertension; ld1 - PSHx: 23:55 None; ld1 - Immunization history:: Adult Immunizations up to date, Client reports having NOT received the Covid vaccine. - Social history:: Smoking status: Patient denies any tobacco usage or history of. Patient/guardian denies using alcohol. Screenin/07 00:26 Abuse screen: Denies threats or abuse. Denies injuries from another. Nutritional tw5 screening: No deficits noted. Tuberculosis screening: No symptoms or risk factors identified. Fall Risk None identified. Assessment: 00:26 General: Reports "I am on my period, I am having abdominal pain, and I have a tw5 headache.". Pain: Complains of pain in low back area, suprapubic area, right lower quadrant and left lower quadrant Pain currently is 5 out of 10 on a pain scale. Neuro: No deficits noted. Respiratory: No deficits noted. 00:36 GI: Abd is soft X 4 quads Abdomen is tender to palpation X 4 quads. tw5 01:30 GI: Bowel sounds present X 4 quads. as6 Vital Signs: 07/22 23:53 BP 151 / 91; Pulse 72; Resp 18; Temp 98.6(TE); Pulse Ox 98% on R/A; Weight 89.81 kg; ld1 Height 5 ft. 0 in. (152.40 cm); Pain 6/10; 07/23 00:26 BP 137 / 97; Pulse 70; Resp 18; tw5 01:31 BP 150 / 101; Pulse 83; Resp 18 S; Pulse Ox 100% on R/A; as6 07/22 23:53 Body Mass Index 38.67 (89.81 kg, 152.40 cm) ld1 ED Course: 07/22 23:48 Patient arrived in ED. bp1 23:55 Triage completed. ld1 23:55 Arm band placed on right wrist. ld1 23:57 [facility] aj3 23:57 Abdulaziz Simon MD is Attending Physician. aj3 07/23 00:00 Nimco Moss is Primary Nurse. tw5 00:26 Patient has correct armband on for positive identification. Bed in low position. Pulse tw5 ox on. NIBP on. Door closed. Moved to private room. Warm blanket given. Verbal reassurance given. 00:36 Initial lab(s) drawn, by me, sent to lab. Inserted saline lock: 20 gauge in left tw5 antecubital area, using aseptic technique. Blood collected. 01:15 ABO/RH typing Sent. 01:15 Basic Metabolic Panel Sent. 01:30 No provider procedures requiring assistance completed. IV discontinued, intact, as6 bleeding controlled, No redness/swelling at site. Pressure dressing applied. Administered Medications: 00:36 Drug: Ketorolac 15 mg Route: IVP; Site: left antecubital; 01:16 Follow up: Response: No adverse reaction Medication: 00:26 VIS not applicable for this client. Outcome: 01:22 Discharge ordered by . aj3 01:30 Discharged to home ambulatory, with family. as6 01:30 Condition: stable 01:30 Discharge instructions given to patient, Instructed on discharge instructions, follow up and referral plans. medication usage, Demonstrated understanding of instructions, follow-up care, medications, Prescriptions given X 2. 01:31 Patient left the ED. as6 Signatures: Helen Mckenzie [facility] Cesia Hebert, RN RN ld1 Nimco Moss tw5 Tomy Chang, AMEYA RN as6 Juanis Florez, ELECTION JUDGE ELECTION JUDGE aj3
--- NOTE | 2021-07-23 01:23 | EDPHYS ---
Physician Documentation [facility] Name: Ruby Araujo Age: 36 yrs Sex: Female : 1985 Arrival Date: 07/22/2021 Time: 23:48 Bed 2 Private MD: ED Physician bAdulaziz Simon HPI: 07/23 00:12 This 36 yrs old Female presents to ER via Ambulatory with complaints of aj3 Abdominal Pain/cramping, vaginal bleeding and High Blood Pressure. 00:12 The patient presents with abdominal pain in the lower abdomen. aj3 01:27 Onset: The symptoms/episode began/occurred acutely, 2 day(s) ago. Associated signs and aj3 symptoms: Pertinent positives: vaginal bleeding. The symptoms are described as burning. The symptoms are described as crampy. . CREATIVE INTERN: 07/22 23:55 LMP 07/22/2021 ld1 Historical: - Allergies: 23:55 No Known Allergies; ld1 - Home Meds: 23:55 None [Active]; ld1 - PMHx: 23:55 Hypertension; ld1 - PSHx: 23:55 None; ld1 - Immunization history:: Adult Immunizations up to date, Client reports having NOT received the Covid vaccine. - Social history:: Smoking status: Patient denies any tobacco usage or history of. Patient/guardian denies using alcohol. ROS: 07/23 01:25 Constitutional: Negative for fever, chills, and weight loss, Cardiovascular: Negative aj3 for chest pain, palpitations, and edema, Respiratory: Negative for shortness of breath, cough, wheezing, and pleuritic chest pain, Skin: Negative for injury, rash, and discoloration, Neuro: Negative for syncope, headache, weakness, numbness, tingling, and seizure. Abdomen/GI: Positive for abdominal pain, abdominal cramps, Negative for nausea, vomiting, and diarrhea. Back: Positive for pain at rest, of the low back area. : Positive for pelvic pain, vaginal bleeding. Exam: 01:26 Constitutional: This is a well developed, well nourished patient who is awake, alert, aj3 and in no acute distress. Head/Face: Normocephalic, atraumatic. Eyes: Pupils equal round and reactive to light, extra-ocular motions intact. Lids and lashes normal. Conjunctiva and sclera are non-icteric and not injected. Cornea within normal limits. Periorbital areas with no swelling, redness, or edema. Cardiovascular: Regular rate and rhythm with a normal S1 and S2. No gallops, murmurs, or rubs. Normal PMI, no JVD. No pulse deficits. Respiratory: Lungs have equal breath sounds bilaterally, clear to auscultation and percussion. No rales, rhonchi or wheezes noted. No increased work of breathing, no retractions or nasal flaring. Back: No spinal tenderness. No costovertebral tenderness. Full range of motion. Skin: Warm, dry with normal turgor. Normal color with no rashes, no lesions, and no evidence of cellulitis. MS/ Extremity: Pulses equal, no cyanosis. Neurovascular intact. Full, normal range of motion. Neuro: Awake and alert, GCS 15, oriented to person, place, time, and situation. Cranial nerves II-XII grossly intact. Motor strength 5/5 in all extremities. Sensory grossly intact. Cerebellar exam normal. Normal gait. 01:26 Abdomen/GI: Exam negative for distension, guarding, rebound tenderness, Bowel sounds: normal, Palpation: mild abdominal tenderness, lower abdomen. Vital Signs: 07/22 23:53 BP 151 / 91; Pulse 72; Resp 18; Temp 98.6(TE); Pulse Ox 98% on R/A; Weight 89.81 kg; ld1 Height 5 ft. 0 in. (152.40 cm); Pain 6/10; 07/23 00:26 BP 137 / 97; Pulse 70; Resp 18; tw5 01:31 BP 150 / 101; Pulse 83; Resp 18 S; Pulse Ox 100% on R/A; as6 07/22 23:53 Body Mass Index 38.67 (89.81 kg, 152.40 cm) ld1 MDM: 07/22 23:57 Patient medically screened. aj3 07/23 01:28 Data reviewed: vital signs, nurses notes, lab test result(s). Counseling: I had a aj3 detailed discussion with the patient and/or guardian regarding: the historical points, exam findings, and any diagnostic results supporting the discharge/admit diagnosis, lab results, the need for outpatient follow up. ED course: ED work-up notable for acute cystitis which is likely was causing her discomfort along with her menstrual cycle. Will start patient on antibiotics and prescribed NSAIDs for pain. Discharge instructions, medications prescribed, PCP follow-up and ER return precautions discussed patient verbalized understanding. 07/23 00:29 Order name: Urine Dipstick-Ancillary; Complete Time: 00:37 EDMS 07/23 00:45 Order name: Basic Metabolic Panel; Complete Time: 01:17 EDMS 07/23 00:12 Order name: IV Saline Lock; Complete Time: 00:36 aj3 07/23 00:12 Order name: Labs collected and sent; Complete Time: 00:36 aj3 07/23 00:12 Order name: NPO; Complete Time: 00:28 aj3 07/23 00:12 Order name: Urine Dipstick-Ancillary (obtain specimen); Complete Time: 00:28 aj3 07/23 00:12 Order name: Urine Test (obtain specimen); Complete Time: 00:28 aj3 07/23 00:45 Order name: CBC with Automated Diff; Complete Time: 01:07 EDMS 07/23 00:45 Order name: ABO/RH typing; Complete Time: 01:25 EDMS Administered Medications: 00:36 Drug: Ketorolac 15 mg Route: IVP; Site: left antecubital; tw5 01:16 Follow up: Response: No adverse reaction tw5 Disposition: 02:09 Co-signature as Attending Physician, Abdulaziz Simon MD. [email or web address] Disposition Summary: 07/23/21 01:22 Discharge Ordered Location: Home aj3 Problem: new aj3 Symptoms: have improved aj3 Condition: Stable aj3 Diagnosis - Acute cystitis aj3 - Elevated blood pressure reading aj3 Discharge Instructions: - Discharge Summary Sheet aj3 - Urinary Tract Infection, Adult, [id number] aj3 Forms: - Work release form aj3 - Medication Reconciliation Form aj3 - Thank You Letter aj3 - Antibiotic Education aj3 - Prescription Opioid Use aj3 Prescriptions: - Naprosyn 500 mg Oral Tablet - take 1 tablet by ORAL route 2 times per day take with food; 30 tablet; Refills: aj3 0, Product Selection Permitted - nitrofurantoin monohyd/m-cryst 100 mg Oral capsule - take 1 capsule by ORAL route every 12 hours for 5 days; 10 capsule; Refills: 0, aj3 Product Selection Permitted Signatures: Dispatcher Medst Abdulaziz Zeng MD MD [email or web address] Cesia Hebert RN RN [email or web address] Nimco Moss tw5 Juanis Florez NP BANKING OFFICER aj3
[2021-07-23 01:53] VITALS: TEMP 98.6
[2021-07-23 01:56] VITALS: BP 150/101; O2SAT 100
== END 2021-07-23 01:31 | disposition home or self-care (01) ==
LOC: ER 23:46
DX: N30.00 Acute cystitis without hematuria (principal); I10 Essential (primary) hypertension
CPT/HCPCS: 36415; 80048; 81003; 85025; 86900; 86901; 96374; 99284

== ENCOUNTER 2021-08-08 22:13 | Emergency (ER) | payer SELFPAY ==
--- OUTSIDE RECORDS SUMMARY | 2021-08-08 22:17 | XMS REPORT | Continuity of Care Document ---
:[address] [facility] t Address [address] [place] [address] Care Team Providers Name Role Phone Maxim FLYNN Primary Care Physician Unavailable Maxim Peck Attending Clinician Maxim FLYNN Attending Clinician Unavailable Scout SHAVER Attending Clinician Juany JENSEN Attending Clinician Resident Rory Attending Clinician Unavailable Doctor Unassigned, Name Attending Clinician Unavailable Payers Payer Name Policy Type Policy Number Effective Date Expiration Date S ource Problems Condition Condition Condition Status Onset Resolution Last Treating Co mments Source Name Details Category Date Date Treatment Clinician Date 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 U nivers sis in sis in 7-24 ity of scar scar 00:00: [address] Essential Essential Disease Active 2020-0 Uni vers hypertensi hypertensi 7-08 it y of on, benign on, benign 00:00: [address] Contracept Contracept Disease Active 2019- U nivers kylie kylie 4-24 ity of management management 00:00: [address] Obesity Obesity Disease Active 2019-0 Univers (BMI [...] 1-25 it y of 00:00: [place] 00 [facility] Pain Pain Disease Active Univers pelvic pelvic 1-20 ity of 00:00: [place] 00 [facility] Allergies, Adverse Reactions, Alerts Allergy Allergy Status Severity Reaction(s) Onset Inactive Treating Comm ents Source Name Type Date Date Clinician NO KNOWN Drug Active [facility] ALLERGIE Class ity of [facility] Social History Social Habit Start Date Stop Date Quantity Comments Source Exposure to 2021-05-27 2021-06-06 Not sure [facility] SARS-CoV-2 00:00:00 08:24:00 [facility] [place] (event) [place] Alcohol intake 2021-03-15 2021-03-15 0 /d University of 00:00:00 00:00:00 [facility] Tobacco Comment 2017-09-02 2017-09-02 denies smoke Univers ity of 00:00:00 00:00:[address] [facility] Tobacco use and 2012-06-23 2012-06-23 Never used Universit y of exposure 00:00:00 00:00:00 [facility] Sex [birth year] Universit y of 00:00:00 00:00:00 [facility] Smoking Status Start Date Stop Date Source Never smoker [facility] Medications Ordered Filled Start Stop Current Ordering Indication Dosage Frequency Signature Comments Components Source Medication Medication Date Date Medication? Clinician (SIG) Name Name atorvastati Yes 20mg Take 20 mg Univers n 20 mg 1-28 by mouth ity of tablet 08:57: at [place] [address] bedtime. Medical Branch atorvastati Yes 20mg Take 20 mg Univers n 20 mg 1-28 by mouth ity of tablet 08:57: at [place] [address] bedtime. Medical Branch carvediloL Yes 3.125mg Take 3.125 Univers 3.125 mg 1-28 mg by ity of tablet 08:56: mouth 2 [place] 50 (two) Medical times Branch daily with meals. carvediloL Yes 3.125mg Take 3.125 Univers 3.125 mg 1-28 mg by ity of tablet 08:56: mouth 2 [place] 50 (two) Medical times [place] daily with meals. norgestimat Yes Take by Un fito e-ethinyl 1-28 mouth. ity of estradiol 08:19: [place] ([employer], 08 Medical 28, ORAL) Branch norgestimat Yes Take by Un fito e-ethinyl 1-28 mouth. ity of estradiol 08:19: [place] ([employer], 08 Medical 28, ORAL) Branch norethindro Yes [id number] 1{tbl} Take 1 Univers ne 0.35 mg 1-28 tablet by ity of tablet 00:00: mouth [place] 00 daily. Medical Branch norethindro Yes [id number] 1{tbl} Take 1 Univers ne 0.35 mg 1-28 tablet by ity of tablet 00:00: mouth [place] 00 daily. [facility] Immunizations Ordered Filled Immunization Date Status Comments [facility] e Immunization Name Name Rubella 2009-08-22 Completed University 00:00:00 [facility] Rubella 2009-08-22 Completed University 00:00:00 [facility] Td 2007-02-16 Completed University 00:00:00 [facility] Td 2007-02-16 Completed [facility] 00:00:00 [facility] Vital Signs Vital Name Observation Time Observation Value Comments Source Systolic blood 2021-06-06 13:24:00 136 mm[Hg] Univer sity of pressure [facility] Diastolic blood 2021-06-06 13:24:00 88 mm[Hg] Unive rsity of pressure [facility] Heart rate 2021-06-06 13:23:00 88 /min [facility] Body temperature 2021-06-06 13:23:[address] [facility] [place] [place] [facility] rate 2021-06-06 13:23:00 20 /min [facility] [facility] Body height 2021-06-06 13:23:00 154.9 cm [facility] Body weight 2021-06-06 13:23:00 89.585 kg [facility] BMI 2021-06-06 13:23:00 37.32 kg/m2 [facility] Procedures This patient has no known procedures. 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 2019-10-27 2019-10-27 Telephone Scout [facility] [id number] 00:00:00 00:00:00 [facility] [id number] CLINICS [id number] 2019-10-04 2019-10-04 Telephone Harrington [facility] [id number] 00:00:00 00:00:00 [facility] [id number] [facility] [id number] 2019-09-19 2019-09-19 Telephone Scout [facility] [id number] 00:00:00 00:00:00 [facility] [id number] CLINICS [id number] 2019-09-12 2019-09-12 Telephone Scout [facility] [id number] 00:00:00 00:00:00 [facility] [id number] [facility] [id number] 2019-09-09 2019-09-09 Office Pool, [facility] [id number] 10:47:23 12:32:13 Visit Resident [facility] [id number] CLINICS [id number] 2019-08-24 2019-08-24 Orders Doctor AUDREY [id number] 00:00:00 00:00:00 Only Unassigned, MICH [id number] [place] [facility] [id number] Results This patient has no known results.
[2021-08-09] MEDS ORDERED: HYDROCODONE/CHLORPHEN 5 ML/OSYR ONE (00:18)
[2021-08-09 00:48] LABS: Absolute Lymphocytes (CBC) 2.6 K/uL (0.7-4.9); Hematocrit 36.7 % (36.0-45.0); Lymphocytes % 37.3 % (15.3-44.8); MPV 8.3 fL (7.6-11.3); RBC Red Blood Cell Count 4.47 M/uL (3.86-4.86)
[2021-08-09 01:05] LABS: Potassium 3.6 mmol/L (3.5-5.1); Troponin High Sensitivity 3.7 pg/mL (<58.9)
--- NOTE | 2021-08-09 01:22 | EDPHYS ---
Physician Documentation [facility] Name: Ruby Araujo Age: 36 yrs Sex: Female : 1985 Arrival Date: 08/08/2021 Time: 22:14 Bed 11 Private MD: ED Physician Jarrett Bain HPI: 08/08 22:53 This 36 yrs old Female presents to ER via Ambulatory with complaints of r/o pm1 covid, High Blood Pressure. 22:53 The patient or guardian reports cough, with no sputum, flu symptoms. Onset: The pm1 symptoms/episode began/occurred yesterday. Modifying factors: The symptoms are alleviated by nothing. the symptoms are aggravated by nothing. Associated signs and symptoms: Pertinent positives: Headache, chest pain, fever. Negative for shortness of breath. Severity of symptoms: in the emergency department the symptoms are worse. The patient has not recently seen a physician. 36-year-old patient presenting to the ER with complaints of high blood pressure, headache, chest pain, and for rule out of COVID. Patient with her father with similar symptoms. He has complaints of sore throat cough and earache. They have stayed over the weekend. Hospital with the patient's mother who had a cardiac cath. Patient is concerned about her chest pain also. 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 - Social history:: Smoking status: Patient denies any tobacco usage or history of. ROS: 22:53 Constitutional: Negative for fever, chills, and weight loss. pm1 22:53 Respiratory: Negative for shortness of breath, cough, wheezing, and pleuritic chest pain, Abdomen/GI: Negative for abdominal pain, nausea, vomiting, diarrhea, and constipation, Back: Negative for injury and pain, MS/Extremity: Negative for injury and deformity, Skin: Negative for injury, rash, and discoloration, Neuro: Negative for headache, weakness, numbness, tingling, and seizure. 22:53 Cardiovascular: Positive for chest pain, Negative for edema, palpitations. 22:53 All other systems are negative. Exam: 22:53 Constitutional: This is a well developed, well nourished patient who is awake, alert, pm1 and in no acute distress. Head/Face: Normocephalic, atraumatic. 22:53 Back: No spinal tenderness. No costovertebral tenderness. Full range of motion. Skin: Warm, dry with normal turgor. Normal color with no rashes, no lesions, and no evidence of cellulitis. MS/ Extremity: Pulses equal, no cyanosis. Neurovascular intact. Full, normal range of motion. 22:53 Cardiovascular: Exam negative for acute changes, Rate: normal, Rhythm: regular, Pulses: no pulse deficits are appreciated, Heart sounds: normal. 22:53 Respiratory: Exam negative for acute changes, respiratory distress, shortness of breath, Breath sounds: are clear throughout. 22:53 Neuro: Exam negative for acute changes, Orientation: is normal, Mentation: is normal, Motor: is normal, moves all fours. Vital Signs: 22:28 BP 186 / 112; Pulse 73; Resp 18; Temp 98.1(O); Pulse Ox 99% on R/A; Weight 90.72 kg; lp1 Height 5 ft. 0 in. (152.40 cm); Pain 6/10; 22:31 BP 169 / 92; lp1 23:35 BP 187 / 101; Pulse 88; Resp 16; Pulse Ox 97% on R/A; jb4 08/09 00:51 BP 149 / 108; Pulse 88; Resp 16; Pulse Ox 98% on R/A; jb4 08/08 22:28 Body Mass Index 39.06 (90.72 kg, 152.40 cm) lp1 MDM: 08/08 22:26 Patient medically screened. pm1 08/09 01:20 Data reviewed: vital signs. Data interpreted: Pulse oximetry: on room air is 98 %. pm1 Interpretation: normal. Counseling: I had a detailed discussion with the patient and/or guardian regarding: the historical points, exam findings, and any diagnostic results supporting the discharge/admit diagnosis, lab results, radiology results, the need for outpatient follow up, to return to the emergency department if symptoms worsen or persist or if there are any questions or concerns that arise at home. 08/08 22:28 Order name: COVID-19 SARS RT PCR (Document "Date of Onset" if Symptomatic); Complete pm1 Time: 00:14 08/08 22:50 Order name: Flu; Complete Time: 00:14 pm1 08/08 22:50 Order name: Strep; Complete Time: 00:14 pm1 08/08 23:36 Order name: Basic Metabolic Panel; Complete Time: 01:20 pm1 08/08 23:36 Order name: CBC with Diff; Complete Time: 01:00 pm1 08/08 23:36 Order name: Troponin HS; Complete Time: 01:20 pm1 08/08 23:36 Order name: XRAY Chest (1 view) pm1 08/08 23:36 Order name: EKG; Complete Time: 23:37 pm1 08/08 23:36 Order name: Cardiac monitoring; Complete Time: 23:39 pm1 08/08 23:36 Order name: EKG - Nurse/Tech; Complete Time: 23:39 pm1 08/08 23:36 Order name: CT Head Brain wo Cont pm1 08/08 23:59 Order name: Throat Culture EDPR 08/08 23:36 Order name: Labs collected and sent; Complete Time: 00:01 pm1 08/08 23:36 Order name: O2 Per Protocol; Complete Time: 23:39 pm1 08/08 23:36 Order name: O2 Sat Monitoring; Complete Time: 23:39 pm1 Administered Medications: 00:15 Drug: Tussionex Pennkinetic ER (chlorpheniramine-hydrocodone) Suspension 5 ml Route: PO;jb4 01:31 Follow up: Response: No adverse reaction; Marked relief of symptoms jb4 Disposition Summary: 08/09/21 01:21 Discharge Ordered Location: Home pm1 Problem: new pm1 Symptoms: have improved pm1 Condition: Stable pm1 Diagnosis - Coronavirus infection, unspecified pm1 - Chest pain, unspecified pm1 - Essential (primary) hypertension pm1 Followup: pm1 - With: Emergency Department - When: As needed - Reason: Worsening of condition Followup: pm1 - With: Private Physician - When: 2 - 3 days - Reason: Recheck today's complaints, Continuance of care, Re-evaluation by your physician Discharge Instructions: - Discharge Summary Sheet pm1 - Nonspecific Chest Pain, Adult pm1 - Hypertension, Adult pm1 - How to Take Your Blood Pressure, Rmxe-nh-Xjud pm1 - DASH Eating Plan pm1 - Managing Your Hypertension pm1 - COVID-19 pm1 - COVID-19 Frequently Asked Questions pm1 - 10 Things You Can Do to Manage Your COVID-19 Symptoms at Home - [facility] pm1 - COVID-19: Quarantine vs. Isolation - [facility] pm1 Forms: - Medication Reconciliation Form pm1 - Thank You Letter pm1 - Antibiotic Education pm1 - Prescription Opioid Use pm1 Signatures: Dispatcher [employer] EDRuby Aquino, RN RN lp1 Kam Stevens, MATIAS WORD PROCESSING SPECIALIST pm1 Norberto Morgan, RN RN jb4 Corrections: (The following items were deleted from the chart) 01:31 08/08 23:36 IV Saline Lock ordered. pm1 jb4
--- NOTE | 2021-08-09 01:22 | ER ---
Nurse's Notes [facility] Name: Ruby Araujo Age: 36 yrs Sex: Female : 1985 Arrival Date: 08/08/2021 Time: 22:14 Bed 11 Private MD: Diagnosis: Coronavirus infection, unspecified;Chest pain, unspecified;Essential (primary) hypertension Presentation: 08/08 22:28 Chief complaint: Patient states: symptoms of headache, sore throat, nasal congestion, lp1 pain with breathing that began 1 day ago; Denies fever; BP at home was 165/105, took Tylenol 1g PO about 2100. Coronavirus screen: congestion, fatigue, headache, sore throat. Ebola Screen: No symptoms or risks identified at this time. Initial Sepsis Screen: Does the patient meet any 2 criteria? No. Patient's initial sepsis screen is negative. Does the patient have a suspected source of infection? No. Patient's initial sepsis screen is negative. Risk Assessment: Do you want to hurt yourself or someone else? Patient reports no desire to harm self or others. Onset of symptoms was August 08, 2021. 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 - Social history:: Smoking status: Patient denies any tobacco usage or history of. Screenin:32 Abuse screen: Denies threats or abuse. Denies injuries from another. Nutritional lp1 screening: No deficits noted. Tuberculosis screening: No symptoms or risk factors identified. Fall Risk None identified. Assessment: 22:30 General: Appears in no apparent distress. comfortable, Behavior is calm, cooperative, jb4 appropriate for age. Pain: Complains of pain in headache, throat Pain does not radiate. Pain currently is 6 out of 10 on a pain scale. Neuro: Level of Consciousness is awake, alert, obeys commands, Oriented to person, place, time, situation. Cardiovascular: Patient's skin is warm and dry. Respiratory: Airway is patent Respiratory effort is even, unlabored, Respiratory pattern is regular, symmetrical. EENT: Throat is clear is pink with gag reflex present. Derm: Skin is intact, Skin is pink, warm \\T\\ dry. Musculoskeletal: Circulation, motion, and sensation intact. Range of motion: intact in all extremities. 23:33 Reassessment: Patient appears in no apparent distress at this time. Patient and/or jb4 family updated on plan of care and expected duration. Pain level reassessed. Patient is alert, oriented x 3, equal unlabored respirations, skin warm/dry/pink. Pt reports chest pressure on the left side of the chest, alleviated by burping, provider notified. 08/09 00:51 Reassessment: Patient appears in no apparent distress at this time. Patient and/or jb4 family updated on plan of care and expected duration. Pain level reassessed. Patient is alert, oriented x 3, equal unlabored respirations, skin warm/dry/pink. 01:31 Reassessment: Patient appears in no apparent distress at this time. Patient and/or jb4 family updated on plan of care and expected duration. Pain level reassessed. Patient is alert, oriented x 3, equal unlabored respirations, skin warm/dry/pink. Vital Signs: 08/08 22:28 BP 186 / 112; Pulse 73; Resp 18; Temp 98.1(O); Pulse Ox 99% on R/A; Weight 90.72 kg; lp1 Height 5 ft. 0 in. (152.40 cm); Pain 6/10; 22:31 BP 169 / 92; lp1 23:35 BP 187 / 101; Pulse 88; Resp 16; Pulse Ox 97% on R/A; jb4 08/09 00:51 BP 149 / 108; Pulse 88; Resp 16; Pulse Ox 98% on R/A; jb4 08/08 22:28 Body Mass Index 39.06 (90.72 kg, 152.40 cm) lp1 ED Course: 08/08 22:14 Patient arrived in ED. as 22:22 Kam Stevens NP is PHCP. pm1 22:22 Jarrett Bain MD is Attending Physician. pm1 22:28 Arm band placed on. lp1 22:30 Patient has correct armband on for positive identification. Bed in low position. Call jb4 light in reach. Side rails up X 1. 22:31 Triage completed. lp1 22:36 Norberto Morgan, RN is Primary Nurse. jb4 23:11 Strep Sent. jb4 23:11 Flu Sent. jb4 23:11 COVID-19 SARS RT PCR (Document "Date of Onset" if Symptomatic) Sent. jb4 23:58 XRAY Chest (1 view) In Process Unspecified. EDMS 08/09 00:15 CT Head Brain wo Cont In Process Unspecified. EDMS 01:31 No provider procedures requiring assistance completed. Patient did not have IV access jb4 during this emergency room visit. Administered Medications: 00:15 Drug: Tussionex Pennkinetic ER (chlorpheniramine-hydrocodone) Suspension 5 ml Route: PO;jb4 01:31 Follow up: Response: No adverse reaction; Marked relief of symptoms jb4 Medication: 08/08 22:32 VIS not applicable for this client. lp1 Outcome: 08/09 01:21 Discharge ordered by MD. pm1 01:31 Discharged to home ambulatory, with family. jb4 01:31 Condition: stable 01:31 Discharge instructions given to patient, Instructed on discharge instructions, follow up and referral plans. Demonstrated understanding of instructions, follow-up care. 01:32 Patient left the ED. jb4 Signatures: Dispatcher [employer] Anuja Moss Laura, RN RN lp1 Kam Stevens, LEAD EMBEDDED SOFTWARE ENGINEER LEAD EMBEDDED SOFTWARE ENGINEER pm1 Norberto Morgan, RN RN jb4 Corrections: (The following items were deleted from the chart) 08/08 23:34 23:33 Reassessment: Patient appears in no apparent distress at this time. Patient jb4 and/or family updated on plan of care and expected duration. Pain level reassessed. Patient is alert, oriented x 3, equal unlabored respirations, skin warm/dry/pink. jb4
[2021-08-09 02:22] VITALS: TEMP 98.1
[2021-08-09 02:26] VITALS: BP 149/108; O2SAT 98
--- NOTE | 2021-08-09 11:41 | RAD REPORT ---
EXAM DESCRIPTION: Head Brain Wo Cont CLINICAL HISTORY: 36 years Female Headache COMPARISON: None TECHNIQUE: Contiguous axial images of the brain were obtained without the administration of intraven ous contrast.This exam was performed according to our departmental dose-optimization program which in cludes use of Automated Exposure Control, adjustment of the mA and/or kV according to patient size an d/or use of iterative reconstruction technique. DLP: 869 mGy*cm FINDINGS: Brain: No acute intracranial hemorrhage. No extra-axial collection. No mass effect or ernie iation. Ventricles: Within normal limits in size. Globes and orbits: No acute abnormality. Bones: No acute osseous finding Paranasal sinuses: Paranasal sinuses are clear. Mastoid air cells: Well pneumatized. Soft tissues: Within normal limits IMPRESSION: No acute intracranial abnormality. Electronically signed by: Andrew Alas DO 08/09/2021 12:27 AM CDT Due to temporary technical issues with the PACS/Fluency reporting system, reports are being signed by the in house radiologist without review as a courtesy to ensure prompt reporting. The interpreting r adiologist is fully responsible for the content of the report.
--- NOTE | 2021-08-09 11:43 | RAD REPORT ---
EXAM DESCRIPTION: Chest Single View CLINICAL HISTORY: 6 years Female, CHEST PAIN COMPARISON: None FINDINGS: No focal lung consolidation. No pleural effusion. No pneumothorax. Cardiomediastinal silhouette is within normal limits. No acute osseous abnormality. IMPRESSION: No acute cardiopulmonary disease. Electronically signed by: Andrew Alas DO 08/09/2021 12:07 AM CDT Due to temporary technical issues with the PACS/Fluency reporting system, reports are being signed by the in house radiologist without review as a courtesy to ensure prompt reporting. The interpreting r adiologist is fully responsible for the content of the report.
--- NOTE | 2021-08-10 17:31 | EKG ---
Test Date: 2021-08-08 Test Time: 23:38:41 Cotton Presser: COOKIE MEASUREMENT RESULTS: Intervals: Rate: 85 IA: 144 QRSD: 86 QT: 388 QTc: 461 [place]: P: 29 IA: 144 QRS: -14 T: 21 INTERPRETIVE STATEMENTS: Normal sinus rhythm Normal ECG No previous ECG available for comparison Electronically Signed On 08-10-21 17:28:44 CDT by Jeff Diaz
== END 2021-08-09 01:32 | disposition home or self-care (01) ==
LOC: ER 22:13
DX: U07.1 COVID-19 (principal); R07.9 Chest pain, unspecified; I10 Essential (primary) hypertension
CPT/HCPCS: 36415; 70450; 71045; 80048; 84484; 85025; 87070; 87081; 87804; 93005; 99283; U0003

== ENCOUNTER 2022-04-06 11:30 | Emergency (ER) | payer SELFPAY ==
--- OUTSIDE RECORDS SUMMARY | 2022-04-06 11:34 | XMS REPORT | Continuity of Care Document ---
:1985 Author Organization [facility] t Address [address] [place] [address] Care Team Providers Name Role Phone Danuta Peck Primary Care Physician [phone] DANUTA OSEI Attending Clinician Unavailable [facility], [facility] Attending Clinician Unavailable Danuta Peck Attending Clinician [phone] Doctor Unassigned, [place] Attending Clinician Unavailable Edgardo Boateng DO Attending Clinician Daisha Hall Attending Clinician DAISHA WILL Attending Clinician Unavailable Natalie Christianson Attending Clinician Chivo Harrington MD Attending Clinician Rory [facility] Resident Attending Clinician Unavailable Connie Scales MD Attending Clinician CONNIE SCALES Attending Clinician Unavailable Danuta Culver RN Attending Clinician Unavailable Leonor Gutierres Attending Clinician LEONOR GARZA Attending Clinician Unavailable Payers Payer Name Policy Type Policy Number Effective Date Expiration Date S jonatan Problems Condition Condition Condition Status Onset Resolution Last Treating Co mments Source Name Details Category Date Date Treatment Clinician Date Endometrio Endometrio Disease Active U nivers sis in sis in 7-24 ity of scar scar 00:00: [address] Essential Essential Disease Active Uni vers hypertensi hypertensi 7-08 it y of on, benign on, benign 00:00: [place] Contracept Contracept Disease Active U nivers kylie kylie 4-24 ity of management management 00:[place] [facility] Obesity Obesity Disease Active Univers (BMI (BMI 2-12 ity of 30-39.9) 30-39.9) 00:00: [address] Tetanus, Tetanus, Disease Active Unive rs diphtheria diphtheria 1-16 it y of , and , and 00:00: [place] acellular acellular 00 Medi jimmy pertussis pertussis Bran ch (Tdap) (Tdap) vaccinatio vaccinatio n declined n declined History of History of Disease Active U nivers anxiety anxiety 7-18 ity of 00:00: [place] [facility] Other Other Disease Active Univers depression depression 1-25 it y of 00:: [address] Pain Pain Disease Active Univers pelvic pelvic 1-20 ity of 00:00: [address] Allergies, Adverse Reactions, Alerts Allergy Allergy Status Severity Reaction(s) Onset Inactive Treating Comm ents Source Name Type Date Date Clinician NO KNOWN Drug Active Univers ALLERGIE Class ity of S [facility] Social History Social Habit Start Date Stop Date Quantity Comments Source Exposure to 2022-02-14 2022-02-24 Not sure [facility] SARS-CoV-2 00:00:00 16:21:00 [facility] (event) [place] Alcohol intake 2021-03-15 2021-03-15 0 /d University 00:00:00 00:00:00 [facility] Tobacco Comment 2017-09-02 2017-09-02 denies smoke Univers ity of 00:00:00 00:00:00 exposure [facility] Tobacco use and 2017-09-02 2017-09-02 Smokeless tobacco Un iversity of exposure 00:00:00 00:00:00 non-user [facility] Sex Ass[birth year] At [birth year] Universit y of 00:00:00 00:00:00 [facility] Smoking Status Start Date Stop Date Source Never smoked tobacco [facility] Medications Ordered Filled Start Stop Current Ordering Indication Dosage Frequency Signature Comments Components Source Medication Medication Date Date Medication? Clinician (SIG) Name Name benji 0 Yes [id number] 1{tbl} Take 1 Univers ne 0.35 mg 1-04 tablet by ity of tablet 00:00: mouth in [place] the Medical morning. Branch benji 2022-0 Yes [id number] 1{tbl} Take 1 Univers ne 0.35 mg 1-04 tablet by ity of tablet 00:00: mouth in [place] the Medical morning. Branch randro 2022-0 Yes [id number] 1{tbl} Take 1 Univers ne 0.35 mg 1-04 tablet by ity of tablet 00:00: mouth in [place] the Medical morning. Branch benji 2022-0 Yes [id number] 1{tbl} Take 1 Univers ne 0.35 mg 1-04 tablet by ity of tablet 00:00: mouth in [place] 00 the Medical morning. Branch atorvastati 0 Yes 20mg Take 20 mg Univers n 20 mg 1-28 by mouth ity of tablet 08:57: at [place] [address] bedtime. [facility] Branch atorvastati 0 Yes 20mg Take 20 mg Univers n 20 mg 1-28 by mouth ity of tablet 08:57: at [place] [address] bedtime. [facility] Branch atorvastati 0 Yes 20mg Take 20 mg Univers n 20 mg 1-28 by mouth ity of tablet 08:57: at [place] [address] bedtime. [facility] Branch atorvastati 0 Yes 20mg Take 20 mg Univers n 20 mg 1-28 by mouth ity of tablet 08:57: at [place] [address] bedtime. [facility] Branch atorvastati 0 Yes 20mg Take 20 mg Univers n 20 mg 1-28 by mouth ity of tablet 08:57: at [place] [address] bedtime. [facility] Branch atorvastati 0 Yes 20mg Take 20 mg Univers n 20 mg 1-28 by mouth ity of tablet 08:57: at [place] 33 bedtime. Medical Branch carvediloL 2022-0 Yes 3.125mg Take 3.125 Univers 3.125 mg 1-28 mg by ity of tablet 08:56: mouth 2 [place] [address] (two) Medical times Branch daily with meals. carvediloL 2022-0 Yes 3.125mg Take 3.125 Univers 3.125 mg 1-28 mg by ity of tablet 08:56: mouth 2 [place] [address] (two) Medical times Branch daily with meals. carvediloL 2022-0 Yes 3.125mg Take 3.125 Univers 3.125 mg 1-28 mg by ity of tablet 08:56: mouth 2 [place] [address] (two) Medical times Branch daily with meals. carvediloL 2022-0 Yes 3.125mg Take 3.125 Univers 3.125 mg 1-28 mg by ity of tablet 08:56: mouth 2 [place] [address] (two) Medical times Branch daily with meals. carvediloL 2022-0 Yes 3.125mg Take 3.125 Univers 3.125 mg 1-28 mg by ity of tablet 08:56: mouth 2 [place] [address] (two) Medical times Branch daily with meals. carvediloL 2022-0 Yes 3.125mg Take 3.125 Univers 3.125 mg 1-28 mg by ity of tablet 08:56: mouth 2 [place] [address] (two) Medical times Branch daily with meals. norgestimat 2021-0 Yes Take by Uni vers e-ethinyl 1-28 mouth. ity of estradiol 08:19: [place] [facility] 28, [facility]) Branch norgestimat 2021-0 Yes Take by Uni vers e-ethinyl 1-28 mouth. ity of estradiol 08:19: [place] ([facility], 08 Medical 28, ORAL) Branch norgestimat 2021-0 Yes Take by Uni vers e-ethinyl 1-28 mouth. ity of estradiol 08:19: [place] ([facility], 08 Medical 28, ORAL) Branch norgestimat 2021-0 Yes Take by Uni vers e-ethinyl 1-28 mouth. ity of estradiol 08:19: [place] ([facility], 08 Medical 28, ORAL) Branch norgestimat 2021-0 Yes Take by Uni vers e-ethinyl 1-28 mouth. ity of estradiol 08:19: [place] ([facility], 08 Medical 28, ORAL) Branch norgestimat Yes Take by Uni vers e-ethinyl -28 mouth. ity of estradiol 08:19: [place] ([facility], Medical 28, ORAL) Branch norethindro Yes [id number] 1{tbl} Take 1 Univers ne 0.35 mg 1-28 tablet by ity of tablet 00:00: mouth [place] 00 daily. Medical Branch norethindro Yes [id number] 1{tbl} Take 1 Univers ne 0.35 mg 1-28 tablet by ity of tablet 00:00: mouth [place] 00 daily. [facility] Branch norethindro 2022- No [id number] 1{tbl} Take 1 Univers ne 0.35 mg 1-28 02-19 tablet by ity of tablet 00:00: 00:00 mouth [place] 00 :00 daily. [facility] Immunizations Ordered Filled Immunization Date Status Comments [facility] e Immunization Name Name Rubella 2009-08-22 Completed University of 00:00:00 [facility] Rubella 2009-08-22 Completed University of 00:00:00 [facility] Rubella 2009-08-22 Completed University of 00:00:00 [facility] Rubella 2009-08-22 Completed University of 00:00:00 [facility] Rubella 2009-08-22 Completed University of 00:00:00 [facility] Rubella 2009-08-22 Completed University of 00:00:00 [facility] Td 2007-02-16 Completed University of 00:00:00 [facility] Td 2007-02-16 Completed University of 00:00:00 [facility] TD, NOS 2007-02-16 Completed University of 00:00:00 [facility] TD, NOS 2007-02-16 Completed University of 00:00:00 [facility] TD, NOS 2007-02-16 Completed University of 00:00:00 [facility] TD, NOS 2007-02-16 Completed University of 00:00:00 [facility] Vital Signs Vital Name Observation Time Observation Value Comments Source Systolic blood 2022-02-24 22:23:00 128 mm[Hg] manual Univer sity of pressure [facility] Diastolic blood 2022-02-24 22:23:00 88 mm[Hg] manual Unive rsity of pressure [facility] Heart rate 2022-02-24 22:21:00 102 /min Universi ty of [facility] Body temperature 2022-02-24 22:21:00 36.39 Anjali Univ ersity of [facility] Respiratory rate 2022-02-24 22:21:00 18 /min Univ ersity of [facility] Body weight 2022-02-24 22:21:00 88.043 kg Universi ty of [facility] BMI 2022-02-24 22:21:00 36.67 kg/m2 Universi ty of [facility] Branch Systolic blood 2021-06-06 13:24:00 136 mm[Hg] Univer sity of pressure [facility] Branch Diastolic blood 2021-06-06 13:24:00 88 mm[Hg] Unive rsity of pressure [facility] Heart rate 2021-06-06 13:23:00 88 /min Universi ty of [facility] Body temperature 2021-06-06 13:23:00 36.72 Anjali [facility] ersity of [facility] Respiratory rate 2021-06-06 13:23:00 20 /min Univ ersity of [facility] Body height 2021-06-06 13:23:00 154.9 cm Universi ty of [facility] Body weight 2021-06-06 13:23:00 89.585 kg Universi ty of [facility] BMI 2021-06-06 13:23:00 37.32 kg/m2 Universi ty [facility] Procedures Procedure Date / Time Performed Performing Clinician [facility] e CONSENT/REFUSAL FOR 2022-02-24 21:06:47 Doctor Unassigned, No [facility] DIAGNOSIS AND Name Medical Branch TREATMENT ASSIGNMENT OF BENEFITS 2022-02-24 21:06:27 Doctor Unassigned, No [facility] Name Medical Branch Encounters Start End Encounter Admission Attending Care Care Encounter Source Date/Time Date/Time Type Type Clinicians Facility Department ID 2022-02-24 2022-02-24 Nurse Visit, Ang-Rmchp Nurse [facility] [id number] [facility] 15:30:00 16:02:50 Visit Danuta Osei VISUAL MERCHANDISING ASSOCIATE [facility]. [facility] Pérez as MATERNAL [phone] Med ical & CHILD [address] [place] [address] 2022-02-24 2022-02-24 [facility] [id number] Univers 15:30:00 15:30:00 DANUTA hollisy o alistair [facility] 2022-02-24 2022-02-24 [facility] [id number] Univers 15:30:00 15:30:00 DANUTA ity o [facility] 2022-02-24 2022-02-24 Out[facility] [id number] Univers 15:00:00 15:00:00 DANUTA torres o [facility] 2022-02-24 2022-02-24 Telephone [facility] 1.2.840.114 [id number] Univers 00:00:00 00:00:00 Danuta C VISUAL MERCHANDISING ASSOCIATE 350.1.13.10 ity of [facility] 4.2.7.2.686 Pérez as MATERNAL [phone] [facility] ical & CHILD [address] [place] [address] 2022-02-24 2022-02-24 Orders Doctor AUDREY 1.2.840.114 [id number] Univers 00:00:00 00:00:00 Only Unassigned, MICH 350.1.13.10 ity of [place] [facility] 4.2.7.2.686 Pérez as [phone] [address] 2022-02-19 2022-02-19 Telephone [facility] 1.2.840.114 [id number] Univers 00:00:00 00:00:00 Danuta C VISUAL MERCHANDISING ASSOCIATE 350.1.13.10 ity of [facility] 4.2.7.2.686 Pérez as MATERNAL [id number] [facility] ical & CHILD [address] [place] [address] 2021-06-06 2021-06-06 Office [facility] [id number] Univers 08:15:00 09:12:10 Visit Danuta C VISUAL MERCHANDISING ASSOCIATE 350.1.13.10 ity of [facility] 4.2.7.2.686 Pérez as MATERNAL [phone] Med ical & CHILD 107 [facility] 2021-06-06 2021-06-06 Outpatient R AKINSIPE, [facility] [id number] Univers 08:15:00 09:12:10 DANUTA ity o f [facility] 2021-06-06 2021-06-06 Outpatient R AKINSIPE, [facility] [id number] Univers 08:15:00 08:15:00 DANUTA ity o f [facility] 2021-06-06 2021-06-06 Outpatient R AKINSIPE, [facility] [id number] Univers 08:15:00 08:15:00 DANUTA ity o f [facility] 2021-06-06 2021-06-06 Outpatient R AKINSIPE, [facility] [id number] Univers 08:15:00 08:15:00 DANUTA telmay o [facility] 2021-03-15 2021-03-15 Outpatient R AKINSIPE, [facility] [id number] Univers 08:00:00 09:27:22 DANUTA ity o [facility] 2021-03-15 2021-03-15 [facility] [id number] Univers 08:00:00 09:27:22 Visit Danuta Pan VISUAL MERCHANDISING ASSOCIATE 350.1.13.10 ity of [facility] 4.2.7.2.686 Pérez as MATERNAL [phone] [facility] ical & CHILD [address] [place] [address] 2021-03-15 2021-03-15 Orders Doctor AUDREY 1.2.840.114 [id number] Univers 00:00:00 00:00:00 Only Unassigned, MICH 350.1.13.10 ity of [place] [facility] 4.2.7.2.686 Pérez as [phone] [facility] jimmy 009 Branch 2020-05-07 2020-05-07 Patient Kilo PRJIHAN 1.2.840.114 [id number] Univers 00:00:00 00:00:[address] [facility] 350.1.13.10 i ty of [facility] 4[place]2.7.2.[place] JAYDEN [id number] Vt dical 388 Branch 2020-04-24 2020-04-24 [facility] 1.2.840.114 [id number] Univers 08:27:42 10:08:38 Visit Daisha Beckman VISUAL MERCHANDISING ASSOCIATE 350.1.13.10 ity of [facility] 4.2.7.2.686 Pérez as MATERNAL [id number] Med ical & CHILD [address] [place] [address] 2020-04-24 2020-04-24 [facility] [id number] Univers 08:15:00 08:15:00 ÁNGELTIM simms alistair [facility] 2020-04-24 2020-04-24 [facility] [id number] Univers 07:45:00 07:45:00 ÁNGELTIM simms alistair [facility] 2020-04-24 2020-04-24 Orders Doctor AUDREY 1.2.840.114 [id number] Univers 00:00:00 00:00:00 Only Unassigned, MICH 350.1.13.10 ity of [place] [facility] 4.2.7.2.686 Pérez as [phone] [facility] 009 [place] 2019-11-14 2019-11-14 Telephone NADYA [place] 1.2.840.114 [id number] Univers 00:00:00 00:00:00 [facility] 350.1.13.10 i ty of [facility] 4.2.7.2.686 [place] [phone] [facility] 113 [place] 2019-11-07 2019-11-07 Outpatient Karuna OSEI [facility] [id number] Univers 15:00:00 15:00:00 DANUTA simms alistair [facility] 2019-10-27 2019-10-27 Telephone NADYA [place] 1.2.840.114 [id number] 00:00:00 00:00:00 [facility] 350.1.13.10 CLINICS 4.2.7.2.686 [phone] [facility] 2019-10-27 2019-10-27 Telephone GERONIMO [place] 1.2.840.114 [id number] Univers 00:00:00 00:00:00 [facility] 350.1.13.10 i ty of CL[place]ICS [place].2.[place] [phone] [address] 2019-10-04 2019-10-04 Telephone Juany [facility] 1.2.840.114 [id number] 00:00:00 00:00:00 [facility] HEALTH 350.1.13.10 CLINICS 4.2.7.2.686 [id number] [facility] 2019-10-04 2019-10-04 Telephone [facility] 1.2.840.114 [id number] Univers 00:00:00 00:00:00 [facility] HEALTH 350.1.13.10 i ty of [place].2.[place] [id number] [address] 2019-09-19 2019-09-19 Telephone [facility] 1.2.840.114 [id number] 00:00:00 00:00:00 [facility] HEALTH 350.1.13.10 CLINICS 4.2.7.2.686 [id number] [facility] 2019-09-19 2019-09-19 Telephone [facility] 1.2.840.114 [id number] Univers 00:00:00 00:00:00 [facility] HEALTH 350.1.13.10 i ty of [place] [id number] [address] 2019-09-12 2019-09-12 Telephone [facility] 1.2.840.114 [id number] Univers 00:00:00 00:00:00 [facility] HEALTH 350.1.13.10 i ty of CL[place]ICS 4[place].2.[place] [id number] [address] 2019-09-12 2019-09-12 Telephone [facility] 1.2.840.114 [id number] 00:00:00 00:00:00 [facility] HEALTH 350.1.13.10 CLINICS 4.2.7.2.686 [id number] [facility] 2019-09-09 2019-09-09 Office Pool, [facility] Resident UNIVERSIT [id number] [id number] Univers 10:47:23 12:32:13 Visit Connie Scales Y HEALTH 350.1.13.10 ity of CLINICS 4.2.7.2.[place] [id number] [facility] 113 [place] 2019-09-09 2019-09-09 [facility] 1.2.840.114 [id number] 10:47:23 12:32:13 Visit [facility] 350.1.13.10 CLINICS 4.2.7.2.686 [id number] [facility] 2019-09-09 2019-09-09 Outpatient R KEERTHI [facility] [id number] Univers 10:00:00 10:00:00 [facility] 2019-09-08 2019-09-08 Telephone [facility] 1.2.840.114 [id number] Univers 00:00:00 00:00:00 Danuta Pan VISUAL MERCHANDISING ASSOCIATE 350.1.13.10 ity of [facility] 4.2.7.2.686 Pérez as MATERNAL [phone] Med ical & CHILD [address] [place] [address] 2019-09-08 2019-09-08 Nurse AUDREY Culver 1.2.840.114 [id number] Univers 00:00:00 00:00:00 Triage Aneatrice MICH 350.1.13.10 ity of [facility] 4.2.7.2.686 Pérez as [phone] [address] 2019-09-08 2019-09-08 Telephone [facility] 1.2.840.114 [id number] Univers 00:00:00 00:00:00 Danuta Pan VISUAL MERCHANDISING ASSOCIATE 350.1.13.10 ity of [facility] 4.2.7.2.686 Pérez as MATERNAL [phone] Med ical & CHILD [address] [place] [address] 2019-08-30 2019-08-30 Office [facility] [id number] Univers 15:16:04 16:18:12 Visit Leonor Clark VISUAL MERCHANDISING ASSOCIATE 350.1.13.10 it y of [facility] 4.2.7.2.686 Pérez as MATERNAL [id number] Med ical & CHILD [address] [place] [address] 2019-08-30 2019-08-30 [facility] [id number] Univers 15:15:00 15:15:00 LEONOR melissa of [facility] 2019-08-30 2019-08-30 Telephone [facility] 1.2.840.114 [id number] Univers 00:00:00 00:00:00 Danuta C VISUAL MERCHANDISING ASSOCIATE 350.1.13.10 ity of [facility] 4.2.7.2.686 Pérez as MATERNAL [phone] [facility] & CHILD [address] [place] [address] 2019-08-24 2019-08-24 Office [facility] [id number] Univers 14:19:31 15:18:06 Visit Danuta C VISUAL MERCHANDISING ASSOCIATE 350.1.13.10 ity of [facility] 4.2.7.2.686 Pérez as MATERNAL [phone] [facility] & [address] 2019-08-24 2019-08-24 Out[facility] [id number] [facility] 14:15:00 14:15:00 DANUTA hollisy o f [facility] 2019-08-24 2019-08-24 Orders Doctor AUDREY 1.2.840.114 [id number] Univers 00:00:00 00:00:00 Only Unassigned, MICH 350.1.13.10 ity of [place] [facility] 4.2.7.2.686 Pérez as [id number] [address] 2019-08-24 2019-08-24 Orders Doctor AUDREY 1.2.840.114 [id number] 00:00:00 00:00:00 Only Unassigned, MICH 350.1.13.10 [place] [facility] 4.2.7.2.686 [id number] 2019-08-11 2019-08-11 Office [facility] [id number] Univers 14:22:05 16:16:40 Visit Danuta C VISUAL MERCHANDISING ASSOCIATE 350.1.13.10 ity of [facility] 4.2.7.2.686 Pérez as MATERNAL [id number] [facility] & [address] 2019-08-11 2019-08-11 Outpatient R [facility] [id number] Univers 14:15:00 14:15:00 DANUTA simms [facility] 2019-08-11 2019-08-11 Orders Doctor AUDREY 1.2.840.114 [id number] Univers 00:00:00 00:00:00 Only Unassigned, MICH 350.1.13.10 ity of [place] [facility] 4.2.7.2.686 Pérez as [id number] [address] 2019-07-28 2019-07-28 Outpatient R AKINNOBLE, [facility] [id number] Univers 09:45:00 09:45:00 DANUTA sainz [facility] 2019-07-28 2019-07-28 [facility] [id number] [facility] 09:00:00 09:00:00 DANUTA sainz [facility] 2019-03-01 2019-03-01 Office [facility] [id number] Univers 10:30:53 11:32:23 Visit Danuta Pan VISUAL MERCHANDISING ASSOCIATE 350.1.13.10 ity of [facility] 4.2.7.2.686 Pérez as MATERNAL [phone] Med ical & CHILD [address] [place] [address] Results This patient has no known results.
[2022-04-06] MEDS ORDERED: NA CHLORIDE 0.9% 1,000 ML ONE (12:48)
[2022-04-06] MEDS ORDERED: ONDANSETRON 4 MG/2 ML VIAL ONE (12:48)
[2022-04-06 12:51] LABS: Absolute Lymphocytes (CBC) 2.4 K/uL (0.7-4.9); Hematocrit 38.3 % (36.0-45.0); Lymphocytes % 37.2 % (15.3-44.8); MCV 81.6 fL (80-100); MPV 8.1 fL (7.6-11.3)
[2022-04-06 13:10] LABS: Urine Blood Trace-lysed (Negative); Urine Glucose Negative (Negative); Urine Protein Negative (Negative)
[2022-04-06 13:10] LABS: ALT/SGPT 21 U/L (13-56); AST/SGOT 12 U/L (15-37); Albumin 3.3 g/dL (3.4-5.0); Alkaline Phosphatase 80 U/L (45-117); BUN Blood Urea Nitrogen 8 mg/dL (7-18); Bicarbonate 26 mmol/L (21-32); Bilirubin Total 0.3 mg/dL (0.2-1.0); Glomerular Filtration Rate 124 ml/min (=/>90); Glucose Level 94 mg/dL (74-106); Lipase 149 U/L (73-393); Potassium 3.8 mmol/L (3.5-5.1); Protein, Total 7.6 g/dL (6.4-8.2); Sodium Level 135 mmol/L (136-145)
[2022-04-06 13:18] LABS: Bilirubin Direct < 0.1 mg/dL (0-0.2)
--- NOTE | 2022-04-06 14:08 | RAD REPORT ---
EXAM DESCRIPTION: CT - Abdomen Pelvis W Contrast - 04/06/2022 1:50 pm CLINICAL HISTORY: Abdominal pain COMPARISON: 2019 TECHNIQUE: Computed axial tomography of the abdomen pelvis was obtained. 100 cc Isovue-300 was admin istered intravenously. Oral contrast was not requested which limits evaluation of bowel and appendix All CT scans are performed using dose optimization technique as appropriate and may include automated exposure control or mA/KV adjustment according to patient size. FINDINGS: Borderline fatty liver Spleen, pancreas, adrenals and kidneys unremarkable There is no evidence of diverticulitis. Abnormal appendix is not visualized. Small to moderate umbilical hernia 3.4 centimeter right adnexal cystic mass without significant free-fluid. This probably represents an ovarian cyst IMPRESSION: 3.4 centimeter right ovarian cyst without significant free fluid
--- NOTE | 2022-04-06 14:11 | RAD REPORT ---
EXAM DESCRIPTION: CT - Head Brain Wo Cont - 04/06/2022 1:52 pm CLINICAL HISTORY: Blurred vision COMPARISON: 2021 TECHNIQUE: Computed axial tomography of the head was obtained. IV contrast was not requested. All CT scans are performed using dose optimization technique as appropriate and may include automated exposure control or mA/KV adjustment according to patient size. FINDINGS: An intracranial bleed is not seen The ventricles are normal in caliber No extra-axial fluid collection is noted. No significant hypo density within the brain is seen. Fluid within the sinuses/ mastoids is not seen. IMPRESSION: No acute intracranial abnormality is seen If patient's symptoms persist MRI of the brain would be recommended
--- NOTE | 2022-04-06 15:22 | EDPHYS ---
Physician Documentation [facility] Name: Ruby Cordoba Age: 36 yrs Sex: Female : 1985 Arrival Date: 04/06/2022 Time: 11:33 Bed 18 Private MD: ED Physician Bahman Tomas HPI: 04/06 17:34 This 36 yrs old Female presents to ER via Ambulatory with complaints of kdr Blurred Vision, Dizziness, Nausea, Pelvic Pain, Skin Problem - discoloration. 17:34 Patient been feeling poorly for the past week. She states that each of the last 3 days kdr she has had blurriness in her right eye that was more intense and significant when she first awakes and over the course of a few hours in the day, it slowly gets better and more or less resolved. She also complains of lower abdominal pain and nausea. She states that she has a history of endometriosis and that this pain is consistent with what she is experienced previously and not new in any way. Patient also noted that the tips of her fingers were yellow and she is not certain what caused that and does not believe that she is eating anything (Cheetos) that may have contributed to this presentation. Patient has also had headaches that come and go and are transient. She otherwise has no acute obvious process ongoing. She is nontoxic-appearing and is alert and oriented and appropriate. Onset: The symptoms/episode began/occurred The patient has a full cadre of symptoms which have been transient and variable in length of presentation. Some of been a matter of few days and others weeks and months.. Severity of symptoms: At their worst the symptoms were mild in the emergency department the symptoms are unchanged have improved. The patient has experienced similar episodes in the past, several times, multiple times, chronically. The patient has not recently seen a physician. Historical: - Allergies: 11:42 No Known Allergies; aa5 - PMHx: 11:42 Hypertension; Endometriosis; Anxiety; Depressive disorder; aa5 - PSHx: 11:42 section; aa5 - Immunization history:: Adult Immunizations unknown. - Social history:: Smoking status: Patient denies any tobacco usage or history of. ROS: 17:34 Constitutional: Negative for fever, chills, and weight loss, Eyes: Negative for injury, kdr pain, redness, and discharge, ENT: Negative for injury, pain, and discharge, Neck: Negative for injury, pain, and swelling, Cardiovascular: Negative for chest pain, palpitations, and edema, Respiratory: Negative for shortness of breath, cough, wheezing, and pleuritic chest pain, Abdomen/GI: Negative for abdominal pain, nausea, vomiting, diarrhea, and constipation, Back: Negative for injury and pain, : Negative for injury, bleeding, discharge, and swelling, MS/Extremity: Negative for injury and deformity, Skin: Negative for injury, rash, and discoloration, Psych: Negative for depression, anxiety, suicide ideation, homicidal ideation, and hallucinations, Allergy/Immunology: Negative for hives, rash, and allergies, Endocrine: Negative for neck swelling, polydipsia, polyuria, polyphagia, and marked weight changes, Hematologic/Lymphatic: Negative for swollen nodes, abnormal bleeding, and unusual bruising. 17:34 Neuro: Positive for dizziness, visual changes, weakness, Negative for altered mental status, loss of consciousness, seizure activity, speech changes, syncope, near syncope. Exam: 17:34 Constitutional: This is a well developed, well nourished patient who is awake, alert, kdr and in no acute distress. Head/Face: Normocephalic, atraumatic. Eyes: Pupils equal round and reactive to light, extra-ocular motions intact. Lids and lashes normal. Conjunctiva and sclera are non-icteric and not injected. Cornea within normal limits. Periorbital areas with no swelling, redness, or edema. Neck: Trachea midline, no thyromegaly or masses palpated, and no cervical lymphadenopathy. Supple, full range of motion without nuchal rigidity, or vertebral point tenderness. No Meningismus. Chest/axilla: Normal chest wall appearance and motion. Nontender with no deformity. No lesions are appreciated. Cardiovascular: Regular rate and rhythm with a normal S1 and S2. No gallops, murmurs, or rubs. Normal PMI, no JVD. No pulse deficits. Respiratory: Lungs have equal breath sounds bilaterally, clear to auscultation and percussion. No rales, rhonchi or wheezes noted. No increased work of breathing, no retractions or nasal flaring. Back: No spinal tenderness. No costovertebral tenderness. Full range of motion. Skin: Warm, dry with normal turgor. Normal color with no rashes, no lesions, and no evidence of cellulitis. MS/ Extremity: Pulses equal, no cyanosis. Neurovascular intact. Full, normal range of motion. Neuro: Awake and alert, GCS 15, oriented to person, place, time, and situation. Cranial nerves II-XII grossly intact. Motor strength 5/5 in all extremities. Sensory grossly intact. Cerebellar exam normal. Normal gait. Psych: Awake, alert, with orientation to person, place and time. Behavior, mood, and affect are within normal limits. 17:34 Abdomen/GI: Inspection: abdomen appears normal, obese Bowel sounds: active, all quadrants, Palpation: soft, mild abdominal tenderness, in all quadrants. Vital Signs: 11:39 BP 163 / 116; Pulse 99; Resp 16 S; Temp 97.7(TE); Pulse Ox 100% on R/A; Weight 90.72 kg aa5 (R); Height 5 ft. 0 in. (152.40 cm) (R); 12:00 BP 145 / 87; Pulse 88; Resp 18; Pulse Ox 99% on R/A; kr3 12:45 BP 144 / 90; Pulse 83; Resp 20; Pulse Ox 99% on R/A; kr3 14:42 BP 156 / 96; Pulse 81; Resp 15; Pulse Ox 100% ; kr3 11:39 Body Mass Index 39.06 (90.72 kg, 152.40 cm) aa5 MDM: 15:22 Patient medically screened. [facility] 17:34 Data reviewed: vital signs, nurses notes, lab test result(s), radiologic studies. [facility] 04/06 12:31 Order name: CBC with Diff [facility] 04/06 12:31 Order name: CMP [facility] 04/06 12:31 Order name: Lipase [facility] 04/06 12:31 Order name: LFT's [facility] 04/06 12:57 Order name: CBC with Automated Diff; Complete Time: 14:12 EDNM 04/06 13:10 Order name: Urine Dipstick-Ancillary; Complete Time: 14:12 EDNM 04/06 12:31 Order name: CT Abd/Pelvis - IV Contrast Only [facility] 04/06 12:31 Order name: CT Head Brain wo Cont [facility] 04/06 13:18 Order name: Comprehensive Metabolic Panel; Complete Time: 14:12 EDNM 04/06 13:18 Order name: Liver (Hepatic) Function; Complete Time: 14:12 [facility] 04/06 13:18 Order name: Lipase; Complete Time: 14:12 EDNM 04/06 14:08 Order name: CT; Complete Time: 14:12 [facility] 04/06 14:12 Order name: CT; Complete Time: 14:12 [facility] 04/06 15:10 Order name: Urine --Ancillary (enter results) eb 04/06 12:31 Order name: IV Saline Lock; Complete Time: 12:44 kdr 04/06 12:31 Order name: Labs collected and sent; Complete Time: 12:44 kdr Administered Medications: 12:55 Drug: NS 0.9% 1000 ml Route: IV; Rate: 1 bolus; Site: right antecubital; kr3 15:52 Follow up: Response: No adverse reaction; IV Status: Completed infusion; IV Intake: kr3 1000ml 12:56 Not Given (Patient Refused): Zofran (Ondansetron) 4 mg IVP once; over 2 minutes kr3 Disposition Summary: 04/06/22 15:22 Discharge Ordered Location: Home kdr Problem: an ongoing problem kdr Symptoms: have improved kdr Condition: Stable kdr Diagnosis - Other visual disturbances kdr - Upper abdominal pain, unspecified kdr - Nausea kdr Followup: kdr - With: Private Physician - When: 2 - 3 days - Reason: If symptoms return, Further diagnostic work-up, Recheck today's complaints, Continuance of care, Re-evaluation by your physician Discharge Instructions: - Discharge Summary Sheet kdr - Blurred Vision, Adult kdr - Nausea and Vomiting, Adult kdr - Abdominal Pain, Adult, [id number] kdr Forms: - Medication Reconciliation Form kdr - Thank You Letter kdr Signatures: Dispatcher [employer] Bahman Ocampo MD MD kdr Claribel Ellison, RN RN aa5 Naty Vallejo RN RN kr3
--- NOTE | 2022-04-06 15:22 | ER ---
Nurse's Notes [facility] Name: Ruby Cordoba Age: 36 yrs Sex: Female : 1985 Arrival Date: 04/06/2022 Time: 11:33 Bed 18 Private MD: Diagnosis: Other visual disturbances;Upper abdominal pain, unspecified;Nausea Presentation: 04/06 11:39 Chief complaint: Patient states: "I've been having dizziness usually in the mornings aa5 and it's been a whole week that I haven't felt good". Pt states "today the vision to my right eye has been blurry". Pt also c/o lower abd pain and nausea. Pt denies vaginal bleeding. Pt states "the tips of my fingers are yellow, I don't know what is wrong". Coronavirus screen: nausea. Ebola Screen: Patient denies travel to an Ebola-affected area in the 21 days before illness onset. Initial Sepsis Screen: Does the patient meet any 2 criteria? HR > 90 bpm. Does the patient have a suspected source of infection? No. Patient's initial sepsis screen is negative. Risk Assessment: Do you want to hurt yourself or someone else? Patient reports no desire to harm self or others. Onset of symptoms was March 2022. 11:39 Method Of Arrival: Ambulatory aa5 11:39 Acuity: SANDRO 3 aa5 Triage Assessment: 13:00 General: Behavior is calm, cooperative, appropriate for age. GI: Reports cramping. kr3 15:50 General: Appears. kr3 15:51 Pain: Complains of pain in abdomen. kr3 Historical: - Allergies: 11:42 No Known Allergies; aa5 - PMHx: 11:42 Hypertension; Endometriosis; Anxiety; Depressive disorder; aa5 - PSHx: 11:42 section; aa5 - Immunization history:: Adult Immunizations unknown. - Social history:: Smoking status: Patient denies any tobacco usage or history of. Screenin:00 [facility] ED Fall Risk Assessment (Adult) History of falling in the last 3 months, kr3 including since admission No falls in past 3 months (0 pts) Confusion or Disorientation No (0 pts) Intoxicated or Sedated No (0 pts) Impaired Gait No (0 pts) Mobility Assist Device Used No (0 pt) Altered Elimination No (0 pt) Score/Fall Risk Level 0 - 2 = Low Risk Oriented to surroundings, Maintained a safe environment, Educated pt \\T\\ family on fall prevention, incl call for assistance when getting out of bed, Assessed \\T\\ reinforced patient's understanding of fall precautions, Hourly rounding (assess needs \\T\\ fall precautionary measures) done. 15:49 Abuse screen: Denies threats or abuse. Nutritional screening: No deficits noted. kr3 Tuberculosis screening: No symptoms or risk factors identified. Assessment: 12:40 Reassessment: Patient appears in no apparent distress at this time. Patient and/or kr3 family updated on plan of care and expected duration. Pain level reassessed. Patient is alert, oriented x 3, equal unlabored respirations, skin warm/dry/pink. 13:00 GI: Abdomen is round non-distended. kr3 13:44 Reassessment: Patient appears in no apparent distress at this time. Patient and/or kr3 family updated on plan of care and expected duration. Pain level reassessed. Patient is alert, oriented x 3, equal unlabored respirations, skin warm/dry/pink. 14:53 Reassessment: Patient appears in no apparent distress at this time. Patient and/or kr3 family updated on plan of care and expected duration. Pain level reassessed. Patient is alert, oriented x 3, equal unlabored respirations, skin warm/dry/pink. Vital Signs: 11:39 BP 163 / 116; Pulse 99; Resp 16 S; Temp 97.7(TE); Pulse Ox 100% on R/A; Weight 90.72 kg aa5 (R); Height 5 ft. 0 in. (152.40 cm) (R); 12:00 BP 145 / 87; Pulse 88; Resp 18; Pulse Ox 99% on R/A; kr3 12:45 BP 144 / 90; Pulse 83; Resp 20; Pulse Ox 99% on R/A; kr3 14:42 BP 156 / 96; Pulse 81; Resp 15; Pulse Ox 100% ; kr3 11:39 Body Mass Index 39.06 (90.72 kg, 152.40 cm) aa5 ED Course: 11:33 Patient arrived in ED. as 11:37 Bahman Tomas MD is Attending Physician. kdr 11:39 Arm band placed on. aa5 11:42 Triage completed. aa5 12:12 Naty Vallejo, RN is Primary Nurse. kr3 12:44 CBC with Diff Sent. bc6 12:44 CMP Sent. bc6 12:45 Lipase Sent. bc6 12:45 Inserted saline lock: 20 gauge in right antecubital area, using aseptic technique. bc6 12:56 LFT's Sent. kr3 13:00 Bed in low position. Call light in reach. Side rails up X 1. kr3 15:49 Urine --Ancillary (enter results) Sent. kr3 15:50 No provider procedures requiring assistance completed. IV discontinued, intact, kr3 bleeding controlled, No redness/swelling at site. Pressure dressing applied. Administered Medications: 12:55 Drug: NS 0.9% 1000 ml Route: IV; Rate: 1 bolus; Site: right antecubital; kr3 15:52 Follow up: Response: No adverse reaction; IV Status: Completed infusion; IV Intake: kr3 1000ml 12:56 Not Given (Patient Refused): Zofran (Ondansetron) 4 mg IVP once; over 2 minutes kr3 Medication: 15:52 VIS not applicable for this client. kr3 Intake: 15:52 IV: 1000ml; Total: 1000ml. kr3 Outcome: 15:22 Discharge ordered by . kdr 15:48 Patient left the ED. kr3 15:51 Discharged to home ambulatory. kr3 15:51 Condition: stable 15:51 Discharge instructions given to patient, Instructed on discharge instructions, follow up and referral plans. Demonstrated understanding of instructions, follow-up care. Signatures: Bahman Tomas MD MD kdr Martinez, Amelia as Calderon, Audri, RN RN aa5 Naty Vallejo, AMEYA RN kr3 Janet Adler 6 Corrections: (The following items were deleted from the chart) 15:50 14:15 [facility] ED Fall Risk Assessment (Adult) History of falling in the last 3 months, kr3 including since admission No falls in past 3 months (0 pts) Confusion or Disorientation No (0 pts) Intoxicated or Sedated No (0 pts) Impaired Gait No (0 pts) Mobility Assist Device Used No (0 pt) Altered Elimination No (0 pt) Score/Fall Risk Level 0 - 2 = Low Risk Oriented to surroundings, Maintained a safe environment, Educated pt \\T\\ family on fall prevention, incl call for assistance when getting out of bed, Assessed \\T\\ reinforced patient's understanding of fall precautions, Hourly rounding (assess needs \\T\\ fall precautionary measures) done, kr3
[2022-04-06 15:53] VITALS: TEMP 97.7
[2022-04-06 15:56] VITALS: BP 156/96; O2SAT 100
== END 2022-04-06 15:48 | disposition home or self-care (01) ==
LOC: ER 11:30
DX: H53.8 Other visual disturbances (principal); R10.10 Upper abdominal pain, unspecified; R11.0 Nausea; I10 Essential (primary) hypertension
CPT/HCPCS: 36415; 70450; 74177; 80053; 81003; 82248; 83690; 85025; 96360; 96361; 99284; J2405; J7030; Q9967

== ENCOUNTER 2022-10-03 07:02 | Emergency (ER) | payer SELFPAY ==
--- OUTSIDE RECORDS SUMMARY | 2022-10-03 07:06 | XMS REPORT | Continuity of Care Document ---
:1985 Author Organization [facility] t Address [address] [place] [address] Care Team Providers Name Role Phone DANUTA OSEI Primary Care Physician Unavailable DANUTA OSEI Attending Clinician Unavailable Danuta Peck Attending Clinician [phone] Visit, [facility] Attending Clinician Unavailable Doctor Unassigned, [place] Attending Clinician Unavailable Edgardo Boateng DO Attending Clinician Daisha Hall Attending Clinician DAISHA WILL Attending Clinician Unavailable Natalie Christianson Attending Clinician Chivo Harrington MD Attending Clinician Rory [facility] Resident Attending Clinician Unavailable Connie Scales MD Attending Clinician CONNIE SCALES Attending Clinician Unavailable Danuta Culver RN Attending Clinician Unavailable Leonor Gutierres Attending Clinician LEONOR GARZA Attending Clinician Unavailable Payers Payer Name Policy Type Policy Number Effective Date Expiration Date S [facility] FAMILY [employer]ANNING [id number] 2022 DEANDRA [id number]% 00:00:00 Problems Condition Condition Condition Status Onset Resolution Last Treating Co mments Source Name Details Category Date Date Treatment Clinician Date Endometrio Endometrio Disease Active U nivers sis in sis in 7-24 ity of scar scar 00:00: [address] Essential Essential Disease Active Uni vers hypertensi hypertensi 7-08 it y of on, benign [place], [place] Contracept Contracept Disease Active U nivers kylie kylie 4-24 ity of management management 00:00[place] Obesity Obesity Disease Active Univers (BMI (BMI 2-12 ity of 30-39.9) 30-39.9) 00:00: [address] Tetanus, Tetanus, Disease Active Unive rs diphtheria diphtheria 1-16 it y of , and , and 00:00: [place] acellular acellular 00 Medi jimmy pertussis pertussis Bran ch (Tdap) (Tdap) vaccinatio vaccinatio n declined n declined History of History of Disease Active U nivers anxiety anxiety 7-18 ity of 00:00: [address] Other Other Disease Active Univers depression depression 1-25 it y of 00:00: [address] Pain Pain Disease Active Univers pelvic pelvic 1-20 ity of 00:00: [address] Allergies, Adverse Reactions, Alerts Allergy Allergy Status Severity Reaction(s) Onset Inactive Treating Comm ents Source Name Type Date Date Clinician NO KNOWN Drug Active Univers ALLERGIE Class ity of S [facility] Social History Social Habit Start Date Stop Date Quantity Comments Source Exposure to 2022-04-15 2022-04-25 Not sure [facility] SARS-CoV-2 00:00:00 08:46:00 [facility] (event) [place] Alcohol intake 2022-04-25 2022-04-25 0 /d University of 00:00:00 00:00:00 [facility] Tobacco Comment 2022-04-25 2022-04-25 denies smoke Univers ity of 00:00:00 00:00:00 exposure [facility] Tobacco use and 2022-04-25 2022-04-25 Smokeless tobacco Un iversity of exposure 00:00:00 00:00:00 non-user [facility] Sex Ass[birth year] At [birth year] Universit y of 00:00:00 00:00:00 [facility] Smoking Status Start Date Stop Date Source Never smoked tobacco [facility] Medications Ordered Filled Start Stop Current Ordering Indication Dosage Frequency Signature Comments Components Source Medication Medication Date Date Medication? Clinician (SIG) Name Name norgestimat 0 2022- No Take by Un fito e-ethinyl 3-10 03-10 mouth. ity of estradiol 08:52: 00:00 [place] (SPRINTEC, 07 :00 Medical 28, ORAL) Branch norgestimat 2022- No Take by Un fito e-ethinyl 3-10 03-10 mouth. ity of estradiol 08:52: 00:00 [place] (SPRINTEC, 07 :00 Medical 28, ORAL) Branch carvediloL 0 Yes 3.125mg Take 1 Un fito 3.125 mg 3-10 tablet by ity of tablet 08:48: mouth in [place] [address] the Medical morning Branch and 1 tablet in the evening. Take with meals. atorvastati 2022-0 Yes 20mg Take 1 Univ ers n 20 mg 3-10 tablet by ity of tablet 08:48: mouth at [place] [address] bedtime. Medical Branch carvediloL 0 Yes 3.125mg Take 1 Un fito 3.125 mg 3-10 tablet by ity of tablet 08:48: mouth in [place] 30 the Medical morning Branch and 1 tablet in the evening. Take with meals. atorvastati 2022-0 Yes 20mg Take 1 Univ ers n 20 mg 3-10 tablet by ity of tablet 08:48: mouth at [place] [address] bedtime. Medical Branch norethindro 0 Yes [id number] 1{tbl} Take 1 Univers ne 0.35 mg 3-10 tablet by ity of tablet 00:00: mouth in [place] 00 the Medical morning. Branch norethindro 2022-0 Yes [id number] 1{tbl} Take 1 Univers ne 0.35 mg 3-10 tablet by ity of tablet 00:00: mouth in [place] 00 the Medical morning. Branch norethindro 2022-0 Yes [id number] 1{tbl} Take 1 Univers ne 0.35 mg 1-04 tablet by ity of tablet 00:00: mouth in [place] 00 the Medical morning. Branch norethindro 2022-0 Yes [id number] 1{tbl} Take 1 Univers ne 0.35 mg 1-04 tablet by ity of tablet 00:00: mouth in [place] 00 the Medical morning. Branch norethindro 2022-0 Yes [id number] 1{tbl} Take 1 Univers ne 0.35 mg 1-04 tablet by ity of tablet 00:00: mouth in [place] 00 the Medical morning. Branch norethindro 2022-0 Yes [id number] 1{tbl} Take 1 Univers ne 0.35 mg 1-04 tablet by ity of tablet 00:00: mouth in [place] 00 the Medical morning. Branch norethindro 2022- No [id number] 1{tbl} Take 1 Univers ne 0.35 mg 1-04 03-10 tablet by ity of tablet 00:00: 00:00 mouth in [place] 00 :00 the Medical morning. Branch norethindro 2022- No [id number] 1{tbl} Take 1 Univers ne 0.35 mg 1-04 03-10 tablet by ity of tablet 00:00: 00:00 mouth in [place] 00 :00 the Medical morning. Branch atorvastati Yes 20mg Take 20 mg Univers n 20 mg 1-28 by mouth ity of tablet 08:57: at [place] [address] bedtime. Medical Branch atorvastati 2021-0 Yes 20mg Take 20 mg Univers n 20 mg 1-28 by mouth ity of tablet 08:57: at [place] [address] bedtime. Medical Branch atorvastati 2021-0 Yes 20mg Take 20 mg Univers n 20 mg 1-28 by mouth ity of tablet 08:57: at [place] [address] bedtime. Medical Branch atorvastati 0 Yes 20mg Take 20 mg Univers n 20 mg 1-28 by mouth ity of tablet 08:57: at [place] [address] bedtime. Medical Branch atorvastati 0 Yes 20mg Take 20 mg Univers n 20 mg 1-28 by mouth ity of tablet 08:57: at [place] [address] bedtime. Medical Branch atorvastati 2022-0 Yes 20mg Take 20 mg Univers n 20 mg 1-28 by mouth ity of tablet 08:57: at [place] 33 bedtime. Medical Branch carvediloL 2-0 Yes 3.125mg Take 3.125 Univers 3.125 mg 1-28 mg by ity of tablet 08:56: mouth 2 [place] [address] (two) Medical times Branch daily with meals. carvediloL 2022-0 Yes 3.125mg Take 3.125 Univers 3.125 mg 1-28 mg by ity of tablet 08:56: mouth 2 [place] [address] (two) Medical times Branch daily with meals. carvediloL 2022-0 Yes 3.125mg Take 3.125 Univers 3.125 mg 1-28 mg by ity of tablet 08:56: mouth 2 [place] [address] (two) Medical times Branch daily with meals. carvediloL 2022-0 Yes 3.125mg Take 3.125 Univers 3.125 mg 1-28 mg by ity of tablet 08:56: mouth 2 [place] [address] (two) Medical times Branch daily with meals. carvediloL 2-0 Yes 3.125mg Take 3.125 Univers 3.125 mg 1-28 mg by ity of tablet 08:56: mouth 2 [place] [address] (two) Medical times Branch daily with meals. carvediloL 2022-0 Yes 3.125mg Take 3.125 Univers 3.125 mg 1-28 mg by ity of tablet 08:56: mouth 2 [place] [address] (two) Medical times Branch daily with meals. norgestimat 2021-0 Yes Take by Uni vers e-ethinyl 1-28 mouth. ity of estradiol 08:19: [place] (SPRINTEC, 08 Medical 28, ORAL) Branch norgestimat 2021-0 Yes Take by Uni vers e-ethinyl 1-28 mouth. ity of estradiol 08:19: [place] (SPRINTEC, 08 Medical 28, ORAL) Branch norgestimat 2021-0 Yes Take by Uni vers e-ethinyl 1-28 mouth. ity of estradiol 08:19: [place] (SPRINTEC, 08 Medical 28, ORAL) Branch norgestimat 2021-0 Yes Take by Uni vers e-ethinyl 1-28 mouth. ity of estradiol 08:19: [place] (SPRINTEC, 08 Medical 28, ORAL) Branch norgestimat Yes Take by Uni vers e-ethinyl 1-28 mouth. ity of estradiol 08:19: [place] (SPRINTEC, 08 Medical 28, ORAL) Branch norgestimat Yes Take by Uni vers e-ethinyl 1-28 mouth. ity of estradiol 08:19: [place] (SPRINTEC, 08 Medical 28, ORAL) Branch norethindro Yes [id number] 1{tbl} Take 1 Univers ne 0.35 mg 1-28 tablet by ity of tablet 00:00: mouth [place] 00 daily. Medical Branch norethindro Yes [id number] 1{tbl} Take 1 Univers ne 0.35 mg 1-28 tablet by ity of tablet 00:00: mouth [place] 00 daily. Medical Branch norethindro 2023- No [id number] 1{tbl} Take 1 Univers ne 0.35 mg 1-28 -04 tablet by ity of tablet 00:00: 00:00 mouth [place] 00 :00 daily. [facility] Immunizations Ordered Filled Immunization Date Status Comments [facility] e Immunization Name Name Rubella 2009-08-22 Completed University of 00:00:00 [facility] Rubella 2009-08-22 Completed University of 00:00:00 [facility] Rubella 2009-08-22 Completed University of 00:00:00 [facility] Rubella 2009-08-22 Completed University of 00:00:00 [facility] Rubella 2009-08-22 Completed University of 00:00:00 [facility] Rubella 2009-08-22 Completed University of 00:00:00 [facility] Rubella 2009-08-22 Completed University of 00:00:00 [facility] Rubella 2009-08-22 Completed University of 00:00:00 [facility] Td 2007-02-16 Completed University of 00:00:00 [facility] Td 2007-02-16 Completed University of 00:00:00 [facility] TD, NOS 2007-02-16 Completed University of 00:00:00 [facility] TD, NOS 2007-02-16 Completed University of 00:00:00 [facility] TD, NOS 2007-02-16 Completed University of 00:00:00 [facility] TD, NOS 2007-02-16 Completed University of 00:00:00 [place] [facility] TD, NOS 2007-02-16 Completed University of 00:00:00 [place] [facility] TD, NOS 2007-02-16 Completed University of 00:00:00 [facility] Vital Signs Vital Name Observation Time Observation Value Comments Source Systolic blood 2022-04-25 15:12:00 140 mm[Hg] Univer sity of pressure [place] [facility] Diastolic blood 2022-04-25 15:12:00 83 mm[Hg] Unive rsity of pressure [place] [facility] Heart rate 2022-04-25 14:47:00 83 /min Universi ty of [place] [facility] Body temperature 2022-04-25 14:47:00 36.28 Anjali Univ ersity of [place] [facility] Respiratory rate 2022-04-25 14:47:00 18 /min Univ ersity of [place] [facility] Body height 2022-04-25 14:47:00 154.9 cm Universi ty of [place] [facility] Body weight 2022-04-25 14:47:00 91.899 kg Universi ty of [place] [facility] BMI 2022-04-25 14:47:00 38.28 kg/m2 Universi ty of [place] [facility] Systolic blood 2022-02-24 22:23:00 128 mm[Hg] manual Univer sity of pressure [place] [facility] Diastolic blood 2022-02-24 22:23:00 88 mm[Hg] manual Unive rsity of pressure [place] [facility] Heart rate 2022-02-24 22:21:00 102 /min Universi ty of [place] [facility] Body temperature 2022-02-24 22:21:00 36.39 Anjali Univ ersity of [place] [facility] Respiratory rate 2022-02-24 22:21:00 18 /min Univ ersity of [place] [facility] Body weight 2022-02-24 22:21:00 88.043 kg Universi ty of [place] [facility] BMI 2022-02-24 22:21:00 36.67 kg/m2 Universi ty of [place] [facility] Systolic blood 2021-06-06 13:24:00 136 mm[Hg] Univer sity of pressure [place] [facility] Diastolic blood 2021-06-06 13:24:00 88 mm[Hg] Unive rsity of pressure [place] [facility] Heart rate 2021-06-06 13:23:00 88 /min [facility] Body temperature 2021-06-06 13:23:00 36.72 Anjali [facility] Respiratory rate 2021-06-06 13:23:00 20 /min [facility] Body height 2021-06-06 13:23:00 154.9 cm [facility] Body weight 2021-06-06 13:23:00 89.585 kg [facility] BMI 2021-06-06 13:23:00 37.32 kg/m2 [facility] Procedures Procedure Date / Time Performed Performing Clinician Sour e CONSENT/REFUSAL FOR 2022-02-24 21:06:47 Doctor Unassigned, No [facility] DIAGNOSIS AND Name [facility] TREATMENT ASSIGNMENT OF BENEFITS 2022-02-24 21:06:27 Doctor Unassigned, No [facility] Branch Encounters Start End Encounter Admission Attending Care Care Encounter Source Date/Time Date/Time Type Type Clinicians Facility Department ID 2022-04-25 2022-04-25 Outpatient Karuna OSEI [facility] [id number] [facility] 08:15:00 09:35:47 DANUTA sainz [facility] 2022-04-25 2022-04-25 Office Sea [facility] [[email or web address]] [id number] Univers 08:15:00 09:35:47 Visit Danuta Pan CELLULAR PHONE REPAIRER 350.1.13.10 ity of [facility] 4.2.7.2.686 Pérez as MATERNAL [phone] [facility] & CHILD [address] [place] [address] 2022-02-24 2022-02-24 Nurse Visit, Gilles-Rmchp Nurse [facility] [[email or web address]] 1.[id number] [facility] 15:30:00 16:02:50 Visit Danuta Osei CELLULAR PHONE REPAIRER 350.1.13. 10 ity of [facility] 4.2.7.2.686 Pérez as MATERNAL [phone] [facility] & CHILD [address] [place] [address] 2022-02-24 2022-02-24 Outpatient R SEA [facility] [id number] Univers 15:30:00 15:30:00 DANUTA sainz [facility] 2022-02-24 2022-02-24 Outpatient R SEA, [facility] [id number] Univers 15:30:00 15:30:00 DANUTA telmay o f [facility] 2022-02-24 2022-02-24 Outpatient R [facility] [id number] Univers 15:00:00 15:00:00 DANUTA telmay o alistair [facility] 2022-02-24 2022-02-24 Telephone [facility] [id number] [id number] Univers 00:00:00 00:00:00 Danuta C CELLULAR PHONE REPAIRER 350.1.13.10 ity of [facility] 4.2.7.2.686 Pérez as MATERNAL [id number] [facility] & CHILD [address] [place] [address] 2022-02-24 2022-02-24 Orders Doctor VENTURA 1.2.840.114 [id number] Univers 00:00:00 00:00:00 Only Unassigned, [place] 350.1.13.10 ity of [place] [facility] 4.2.7.2.686 Pérez as [phone] [address] 2022-02-19 2022-02-19 [facility]phone [facility] 1.2.840.114 [id number] Univers 00:00:00 00:00:00 Danuta C CELLULAR PHONE REPAIRER 350.1.13.10 ity of [facility] 4.2.7.2.686 Pérez as MATERNAL [phone] [facility] & CHILD [address] [place] [address] 2021-06-06 2021-06-06 Office [facility] [id number] Univers 08:15:00 09:12:10 Visit Danuta C CELLULAR PHONE REPAIRER 350.1.13.10 ity of [facility] 4.2.7.2.686 Pérez as MATERNAL [phone] [address] 2021-06-06 2021-06-06 Outpatient R [facility] [id number] Univers 08:15:00 09:12:10 DANUTA ity o [facility] [place] [facility] 2021-06-06 2021-06-06 Outpatient R AKINSIPE, [facility] [id number] Univers 08:15:00 08:15:00 DANUTA ity o f [facility] 2021-06-06 2021-06-06 Outpatient R AKINSIPE, [facility] [id number] Univers 08:15:00 08:15:00 DANUTA ity o f [facility] 2021-06-06 2021-06-06 Outpatient R AKINSIPE, [facility] [id number] Univers 08:15:00 08:15:00 DANUTA ity o f [facility] 2021-03-15 2021-03-15 Outpatient R AKINSIPE, [facility] [id number] Univers 08:00:00 09:27:22 DANUTA ity o f [facility] 2021-03-15 2021-03-15 [facility] [id number] Univers 08:00:00 09:27:22 Visit Danuta Pan CELLULAR PHONE REPAIRER 350.1.13.10 ity of [facility] 4.2.7.2.686 Pérez as MATERNAL [phone] Med ical & CHILD [address] [place] [address] 2021-03-15 2021-03-15 Orders Doctor AUDREY 1.2.840.114 [id number] Univers 00:00:00 00:00:00 Only Unassigned, [place] 350.1.13.10 ity of [place] [facility] 4.2.7.2.686 Pérez as [phone] [facility] 009 [place] 2020-05-07 2020-05-07 Patient Kilo [facility] [[email or web address]] 1.2.840.114 [id number] Univers 00:00:00 00:00:00 Outreach Edgardo PRIMARY 350.1.13.10 i ty of [facility] 4[place]2.7.2.[place] [id number] Mo dical 388 [place] 2020-04-24 2020-04-24 Office Suman [facility] [[email or web address]] 1.2.840.114 [id number] Univers 08:27:42 10:08:38 Visit Daisha Beckman CELLULAR PHONE REPAIRER 350.1.13.10 ity of [facility] 4.2.7.2.686 Pérez as MATERNAL [phone] Med ical & CHILD [address] [place] [address] 2020-04-24 2020-04-24 Outpatient R SUMAN [facility] [id number] Univers 08:15:00 08:15:00 DAISHA torres o alistair [facility] 2020-04-24 2020-04-24 Outpatient R SUMAN [facility] [id number] Univers 07:45:00 07:45:00 DAISHA torres o alistair [facility] 2020-04-24 2020-04-24 Orders Doctor AUDREY 1.2.840.114 [id number] Univers 00:00:00 00:00:00 Only Unassigned, [place] 350.1.13.10 ity of [place] [facility] 4.2.7.2.686 Pérez as [phone] [address] 2019-11-14 2019-11-14 Telephone GERONIMO Butterfield 1.2.840.114 [id number] Univers 00:00:00 00:00:00 [facility] 350.1.13.10 i ty of [place] [id number] [address] 2019-11-07 2019-11-07 Outpatient R ARIELKUSHCHRISTOPH [facility] [id number] Univers 15:00:00 15:00:00 DANUTA melissa sainz [facility] 2019-10-27 2019-10-27 Telephone GERONIMO Butterfield 1.2.840.114 [id number] 00:00:00 00:00:00 [facility] 350.1.13.10 CLINICS 4.2.7.2.686 [id number] [facility] 2019-10-27 2019-10-27 Telephone Scout [facility] 1.2.840.114 [id number] Univers 00:00:00 00:00:00 [facility] 350.1.13.10 i ty of [id number] [address] 2019-10-04 2019-10-04 Telephone GERONIMO Harrington 1.2.840.114 [id number] 00:00:00 00:00:00 [facility] 350.1.13.10 CLINICS 4.2.7.2.686 [id number] [facility] 2019-10-04 2019-10-04 Telephone GERONIMO Harrington 1.2.840.114 [id number] Univers 00:00:00 00:00:00 [facility] HEALTH 350.1.13.10 i ty of [place] [id number] [address] 2019-09-19 2019-09-19 Telephone GERONIMO Butterfield 1.2.840.114 [id number] 00:00:00 00:00:00 [facility] HEALTH 350.1.13.10 CLINICS 4.2.7.2.686 [id number] [facility] 2019-09-19 2019-09-19 Telephone GERONIMO Butterfield 1.2.840.114 [id number] Univers 00:00:00 00:00:00 [facility] 350.1.13.10 i ty of [place] [id number] [address] 2019-09-12 2019-09-12 Telephone Scout [facility] 1.2.840.114 [id number] Univers 00:00:00 00:00:00 [facility] HEALTH 350.1.13.10 i ty of [place] [id number] [address] 2019-09-12 2019-09-12 Telephone Scout [facility] 1.2.840.114 [id number] 00:00:00 00:00:00 [facility] 350.1.13.10 CLINICS 4.2.7.2.686 [id number] [facility] 2019-09-09 2019-09-09 Office Pool, [facility] Resident UNIVERSIT [id number] [id number] Univers 10:47:23 12:32:[address] [facility] HEALTH 350.1.13.10 ity of [place] [id number] [address] 2019-09-09 2019-09-09 Office Pool, [facility] UNIVERSIT 1.2.840.114 [id number] 10:47:23 12:32:13 Visit [facility] 350.1.13.10 [facility] 4.2.7.2.686 [id number] 2019-09-09 2019-09-09 Outpatient R LOYDA [facility] [id number] Univers 10:00:00 10:00:00 CONNIE ity [facility] [place] 2019-09-08 2019-09-08 Telephone [facility] 1.2.840.114 [id number] Univers 00:00:00 00:00:00 Danuta C CELLULAR PHONE REPAIRER 350.1.13.10 ity of [facility] 4.2.7.2.686 Pérez as MATERNAL [id number] Med ical & CHILD [address] [place] [address] 2019-09-08 2019-09-08 Nurse AUDREY Culver 1.2.840.114 [id number] Univers 00:00:00 00:00:00 Triage Anefrancisco EPPS 350.1.13.10 ity [facility] 4.2.7.2.686 Pérez as [phone] [address] 2019-09-08 2019-09-08 Telephone [facility] 1.2.840.114 [id number] Univers 00:00:00 00:00:00 Danuta C CELLULAR PHONE REPAIRER 350.1.13.10 ity of [facility] 4.2.7.2.686 Pérez as MATERNAL [id number] [facility] ical & CHILD [address] [place] [address] 2019-08-30 2019-08-30 [facility] 1.2.171.570 [id number] Univers 15:16:04 16:18:12 Visit Leonor Clark CELLULAR PHONE REPAIRER 350.1.13.10 it y of [facility] 4.2.7.2.686 Pérez as MATERNAL [id number] [facility] ical & CHILD [address] [place] [address] 2019-08-30 2019-08-30 Outpatient R GREG [facility] [id number] Univers 15:15:00 15:15:00 LEONOR torres [facility] [place] 2019-08-30 2019-08-30 Telephone [facility] 1.2.840.114 [id number] Univers 00:00:00 00:00:00 Danuta C CELLULAR PHONE REPAIRER 350.1.13.10 ity of REGIONAL 4.2.7.2.686 Pérez as MATERNAL [id number] [facility] & CHILD [address] [place] [address] 2019-08-24 2019-08-24 Office [facility] [id number] Univers 14:19:31 15:18:06 Visit Danuta C CELLULAR PHONE REPAIRER 350.1.13.10 ity of REGIONAL 4.2.7.2.686 Pérez as MATERNAL [id number] [facility] & CHILD [address] [place] [address] 2019-08-24 2019-08-24 Outpatient R AKINNOBLE, [facility] [id number] Univers 14:15:00 14:15:00 DANUTA sainz [facility] 2019-08-24 2019-08-24 Orders Doctor AUDREY 1.2.840.114 [id number] Univers 00:00:00 00:00:00 Only Unassigned, [place] 350.1.13.10 ity of [place] [facility] 4.2.7.2.686 Pérez as [id number] [address] 2019-08-24 2019-08-24 Orders Doctor AUDREY 1.2.840.114 [id number] 00:00:00 00:00:00 Only Unassigned, [place] 350.1.13.10 [place] [facility] 4.2.7.2.686 [id number] 2019-08-11 2019-08-11 Office [facility] [id number] Univers 14:22:05 16:16:40 Visit Danuta C CELLULAR PHONE REPAIRER 350.1.13.10 ity of REGIONAL 4.2.7.2.686 Pérez as MATERNAL [phone] [facility] & CHILD [address] [place] [address] 2019-08-11 2019-08-11 Outpatient R AKINNOBLE, [facility] [id number] Univers 14:15:00 14:15:00 DANUTA sainz [facility] 2019-08-11 2019-08-11 Orders Doctor AUDREY 1Roayl2.840.114 [id number] Univers 00:00:00 00:00:00 Only Unassigned, [place] 350.1.13.10 ity of [place] [facility] 4.2.7.2.686 Pérez as [phone] [address] 2019-07-28 2019-07-28 Outpatient R SEA [facility] [id number] Univers 09:45:00 09:45:00 DANUTA sainz [facility] 2019-07-28 2019-07-28 Outpatient R SEA [facility] [id number] Univers 09:00:00 09:00:00 DANUTA sainz [facility] 2019-03-01 2019-03-01 [facility] [id number] [id number] Univers 10:30:53 11:32:23 Visit Danuta Pan CELLULAR PHONE REPAIRER 350.1.13.10 ity of [facility] 4.2.7.2.686 Pérez as MATERNAL [id number] Med ical & CHILD 107 [facility] Results This patient has no known results.
[2022-10-03 07:49] LABS: Absolute Lymphocytes (CBC) 2.5 K/uL (0.7-4.9); Hematocrit 37.7 % (36.0-45.0); Lymphocytes % 41.4 % (15.3-44.8); MCV 81.8 fL (80-100); MPV 8.5 fL (7.6-11.3); Platelets 308 thou/uL (152-406); RBC Red Blood Cell Count 4.61 M/uL (3.86-4.86)
[2022-10-03 07:53] LABS: Protime INR 0.97
[2022-10-03 08:07] LABS: Potassium 3.9 mEq/L (3.5-5.1); Troponin High Sensitivity 4.8 pg/mL (<58.9)
[2022-10-03 08:07] LABS: Specific Gravity 1.021 (1.005-1.030)
[2022-10-03 08:08] LABS: Specific Gravity 1.021 (1.005-1.030); Urine Bilirubin NEGATIVE (Negative); Urine Blood Negative (Negative); Urine Clarity Clear (Clear); Urine Color Colorless (Yellow); Urine Glucose 3+ (Negative); Urine Protein NEGATIVE (Negative); Urine Urobilinogen Normal (Normal)
--- NOTE | 2022-10-03 08:10 | RAD REPORT ---
EXAM DESCRIPTION: CT - Head Brain Wo Cont - 10/03/2022 7:58 am CLINICAL HISTORY: HTN, paresthesia left side COMPARISON: Head angio dated 10/03/2022; Head Brain Wo Cont dated 04/06/2022 TECHNIQUE: All CT scans are performed using dose optimization technique as appropriate and may inclu de automated exposure control or mA/KV adjustment according to patient size. FINDINGS: No intracranial hemorrhage, hydrocephalus or extra-axial fluid collection.No areas of brai n edema or evidence of midline shift. Cavum septum pellucidum. The paranasal sinuses and mastoids are clear. The calvarium is intact. IMPRESSION: No acute intracranial abnormality.
--- NOTE | 2022-10-03 08:11 | RAD REPORT ---
EXAM DESCRIPTION: CT - Head angio - 10/03/2022 7:58 am CLINICAL HISTORY: paresthesia COMPARISON: Head Brain Wo Cont dated 04/06/2022; Head Brain Wo Cont dated 08/09/2021 TECHNIQUE: CT angiography of the head was performed with maximum intensity reformatted images. 3D ma ximum intensity pixel (MIP) reconstructions were created All CT scans are performed using dose optimization technique as appropriate and may include automated exposure control or mA/KV adjustment according to patient size. FINDINGS: Anterior circulation: No aneurysm or large vessel occlusion. No hemodynamically significant stenosis. No arteriovenous malf ormation identified. Posterior circulation: No aneurysm or large vessel occlusion. No hemodynamically significant stenosis. No arteriovenous malf ormation identified. IMPRESSION: No significant flow abnormality is detected.
--- NOTE | 2022-10-03 08:12 | RAD REPORT ---
EXAM DESCRIPTION: CT - Neck Angio - 10/03/2022 7:58 am CLINICAL HISTORY: paresthesias left side COMPARISON: No comparisons TECHNIQUE: CT angiography of the neck vessels was performed with maximum intensity reformatted image s. CAROTID STENOSIS REFERENCE USING NASCET CRITERIA: Mild - <50% stenosis. Moderate - 50-69% stenosis. Severe - 70-94% stenosis. Near occlusion - 95-99% stenosis. Occluded - 100% stenosis. All CT scans are performed using dose optimization technique as appropriate and may include automated exposure control or mA/KV adjustment according to patient size. FINDINGS: A left aortic arch is identified with normal three vessel configuration of the great vesse ls. No significant flow abnormality is seen of the common carotid bilaterally. No significant stenosis is identified involving the cervical segments of both internal carotid arteri es. Normal flow is seen within both vertebral arteries. IMPRESSION: No significant flow abnormality of the neck vessels is identified.
--- NOTE | 2022-10-03 09:10 | RAD REPORT ---
EXAM DESCRIPTION: MRI - Brain Wo Cont - 10/03/2022 8:47 am CLINICAL HISTORY: paresthesias left side COMPARISON: No comparisons TECHNIQUE: Sagittal T1-weighted images were obtained along with PD/heavily T2-weighted and T2-FLAIR images. Axial DWI and ADC mapping sequences were also obtained along with coronal heavily T2-weighted images were obtained. FINDINGS: No intracranial hemorrhage, mass or acute infarction. There is no edema or shift of midlin e structures. No extra-axial fluid collections. Signal voids are seen as a normal finding in the maxine r intracranial vessels. Nonspecific T2/FLAIR hyperintense signal foci within the subcortical and deep white matter. Cavum septum pellucidum. Mastoid air cells and paranasal sinuses are clear. IMPRESSION: No acute intracranial abnormality. Specifically, no evidence of acute infarct. Scattered T2/FLAIR hyperintense signal foci within the subcortical and deep white matter that is abnormal for patient of this age. This could reflect age advanced chronic small vessel ischemic changes or possibl y sequela of demyelinating disease or migraines.
--- NOTE | 2022-10-03 09:15 | ER ---
Nurse's Notes [facility] Name: Ruby Cullen Age: 37 yrs Sex: Female : 1985 Arrival Date: 10/03/2022 Time: 07:02 Bed 5 Private MD: Diagnosis: Essential (primary) hypertension;Paresthesia of skin Presentation: 10/03 07:15 Chief complaint: Patient states: Went to bed last night feeling cloudy and thirsty but jl7 full. Woke this morning with tingling in left facial cheek and left arm. 07:15 Method Of Arrival: Ambulatory jl7 07:15 Coronavirus screen: At this time, the client does not indicate any symptoms associated jl7 with coronavirus-19. Ebola Screen: No symptoms or risks identified at this time. Initial Sepsis Screen: Does the patient meet any 2 criteria? No. Patient's initial sepsis screen is negative. Does the patient have a suspected source of infection? No. Patient's initial sepsis screen is negative. Risk Assessment: Do you want to hurt yourself or someone else? Patient reports no desire to harm self or others. Onset of symptoms is unknown. Care prior to arrival: None. 07:15 Acuity: SANDRO 3 jl7 Triage Assessment: 07:15 General: Appears in no apparent distress. uncomfortable, Behavior is cooperative, jl7 anxious. Pain: Denies pain. Neuro: Level of Consciousness is awake, alert, obeys commands, Oriented to person, place, time, situation, Signing Agent are equal bilaterally Moves all extremities. Full function Gait is steady, Speech is normal, Facial symmetry appears normal, Tingling in left cheek. Cardiovascular: Patient's skin is warm and dry. Respiratory: Airway is patent Respiratory effort is even, unlabored, Respiratory pattern is regular, symmetrical. Derm: Skin is pink, warm \T\ dry. 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 - Social history:: Smoking status: Patient denies any tobacco usage or history of. - Family history:: not pertinent. - Hospitalizations: : No recent hospitalization is reported. Screenin:45 [facility] ED Fall Risk Assessment (Adult) Score/Fall Risk Level 0 - 2 = Low Risk hb Oriented to surroundings, Maintained a safe environment. Abuse screen: Denies threats or abuse. Denies injuries from another. Nutritional screening: No deficits noted. Tuberculosis screening: No symptoms or risk factors identified. Assessment: 07:44 General: Appears in no apparent distress. Behavior is calm, cooperative. Pain: Denies hb pain. Neuro: Level of Consciousness is awake, alert, obeys commands, Oriented to person, place, time, situation, Reports blurred vision dizziness. Cardiovascular: Patient's skin is warm and dry. Respiratory: Respiratory effort is even, unlabored, Respiratory pattern is regular, symmetrical. GI: No signs and/or symptoms were reported involving the gastrointestinal system. : No signs and/or symptoms were reported regarding the genitourinary system. EENT: No signs and/or symptoms were reported regarding the EENT system. Derm: Skin is pink, warm \T\ dry. Musculoskeletal: No signs and/or symptoms reported regarding the musculoskeletal system. 09:03 Reassessment: Patient appears in no apparent distress at this time. Patient and/or hb family updated on plan of care and expected duration. Pain level reassessed. Patient is alert, oriented x 3, equal unlabored respirations, skin warm/dry/pink. Vital Signs: 07:15 BP 199 / 102; Pulse 81; Resp 14; Temp 97.9; Pulse Ox 100% ; Weight 89.81 kg; Height 5 jl7 ft. 0 in. ; Pain 0/10; 08:26 BP 158 / 91; Pulse 76; Resp 16; Pulse Ox 99% on R/A; hb 07:15 Body Mass Index 38.67 (89.81 kg, 152.4 cm) jl7 07:15 Pain Scale: Adult jl7 ED Course: 07:04 Patient arrived in ED. ts1 07:06 Tani Cardona MD is Attending Physician. rn 07:15 Arm band placed on right wrist. jl7 07:35 Patient has correct armband on for positive identification. Placed in gown. Bed in low mm9 position. Call light in reach. Side rails up X 1. Adult w/ patient. Warm blanket given. Client placed on continuous cardiac and pulse oximetry monitoring. NIBP monitoring applied. classroom monitor on. Pulse ox on. NIBP on. 07:36 EKG done, by ED staff, reviewed by Tani Cadrona MD. mm9 07:37 Triage completed. jl7 07:37 Basic Metabolic Panel Sent. mm9 07:44 Inserted saline lock: 20 gauge in right antecubital area, using aseptic technique. hb Blood collected. 07:45 Luciana Jo, RN is Primary Nurse. hb 07:59 CT Head Brain wo Cont In Process Unspecified. EDMS 08:[address] In Process Unspecified. EDMS 08:[address] In Process Unspecified. EDMS 08:49 Brain Wo Cont MRI In Process Unspecified. EDMS 09:35 No provider procedures requiring assistance completed. IV discontinued, intact, ld1 bleeding controlled, No redness/swelling at site. Administered Medications: No medications were administered Medication: 07:45 VIS not applicable for this client. hb Point of Care Testing: Blood Glucose: 07:44 Blood Glucose: 133 mg/dL; hb Ranges: Outcome: 09:14 Discharge ordered by . rn 09:35 Discharged to home ambulatory, with family. ld1 09:35 Condition: stable 09:35 Discharge instructions given to patient, family, Instructed on discharge instructions, follow up and referral plans. Demonstrated understanding of instructions, follow-up care. 09:35 Patient left the ED. ld1 Signatures: Dispatcher [employer] Tani Coe MD MD rn Baxter, Heather, RN RN Ely Harris RN RN jl7 Cesia Johnston RN RN ld1 Ciara Menezes mm9 Alicia Nazario PAS PAS ts1
--- NOTE | 2022-10-03 09:15 | EDPHYS ---
Physician Documentation [facility] Name: Ruby Cullen Age: 37 yrs Sex: Female : 1985 Arrival Date: 10/03/2022 Time: 07:02 Bed 5 Private MD: ED Physician Tani Cardona HPI: 10/03 08:15 This 37 yrs old Female presents to ER via Ambulatory with complaints of rn Blurred Vision, Blood Pressure Problem, Tingling on left side. 08:15 The patient presents to the emergency department with paresthesias of the left upper rn extremity, left side of the face. Onset: The symptoms/episode began/occurred at an unknown time. Associated signs and symptoms: Pertinent positives: paresthesias, Pertinent negatives: fever, headache, nausea, neck stiffness, seizure, syncope, visual field changes, loss of vision, weakness. Severity of symptoms: At their worst the symptoms were mild in the emergency department the symptoms have improved. The patient has experienced similar episodes in the past. The patient has not recently seen a physician. Pt reports woke up this AM with tingling to left face and left arm, present the moment she woke up, states "felt tired" last night, no weakness/headache/chest pain/sob/abd pain. Has HTN but doesn't take her BP meds unless elevated. Did not take her medication this AM. . 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 - Social history:: Smoking status: Patient denies any tobacco usage or history of. - Family history:: not pertinent. - Hospitalizations: : No recent hospitalization is reported. ROS: 08:15 Constitutional: Negative for fever, chills, and weight loss, Eyes: Negative for injury, rn pain, redness, and discharge, Neck: Negative for injury, pain, and swelling, Cardiovascular: Negative for chest pain, palpitations, and edema, Respiratory: Negative for shortness of breath, cough, wheezing, and pleuritic chest pain, Abdomen/GI: Negative for abdominal pain, nausea, vomiting, diarrhea, and constipation, MS/Extremity: Negative for injury and deformity, Skin: Negative for injury, rash, and discoloration, Neuro: Negative for headache, weakness, and seizure Exam: 08:15 Constitutional: This is a well developed, well nourished patient who is awake, alert, rn and in no acute distress. Head/Face: Normocephalic, atraumatic. Eyes: Pupils equal round and reactive to light, extra-ocular motions intact. Cardiovascular: Regular rate and rhythm. No pulse deficits. Respiratory: No increased work of breathing, no retractions or nasal flaring. Abdomen/GI: Soft, non-tender Skin: Warm, dry MS/ Extremity: Pulses equal, no cyanosis. Neuro: Awake and alert, GCS 15, oriented to person, place, time, and situation. Cranial nerves II-XII grossly intact. Motor strength 5/5 in all extremities. Cerebellar exam normal. Normal gait. + mild decrease in sensation to soft touch left cheek but not upper or lower face, + mild paresthesia left arm, normal sensation left leg. 08:59 ECG was reviewed by the Attending Physician. rn Vital Signs: 07:15 BP 199 / 102; Pulse 81; Resp 14; Temp 97.9; Pulse Ox 100% ; Weight 89.81 kg; Height 5 jl7 ft. 0 in. ; Pain 0/10; 08:26 BP 158 / 91; Pulse 76; Resp 16; Pulse Ox 99% on R/A; hb 07:15 Body Mass Index 38.67 (89.81 kg, 152.4 cm) jl 07:15 Pain Scale: Adult jl7 MDM: 07:06 Patient medically screened. rn 07:28 ED course: Pt states woke with symptoms present already, last known normal last night. rn 08:33 ED course: BP has come down without intervention and paresthesias improving. rn 09:11 Data reviewed: vital signs, nurses notes, lab test result(s), EKG, radiologic studies, rn CT scan, MRI, and as a result, I will discharge patient. Counseling: I had a detailed discussion with the patient and/or guardian regarding the historical points, exam findings, and any diagnostic results supporting the discharge/admit diagnosis, lab results, radiology results, the need for outpatient follow up, to return to the emergency department if symptoms worsen or persist or if there are any questions or concerns that arise at home. Counseling: I had a detailed discussion with the patient and/or guardian regarding the presence of at least one elevated blood pressure reading (>120/80) during this emergency department visit. Response to treatment: the patient's symptoms have markedly improved after treatment, and as a result, I will discharge patient. Special discussion: I have referred the patient to see his PCP for further evaluation of high blood pressure. I discussed with the patient/guardian in detail that at this point there is no indication for admission to the hospital. It is understood, however, that if the symptoms persist or worsen the patient needs to return immediately for re-evaluation. Based on the history and exam findings, there is no indication for further emergent testing or inpatient evaluation. I discussed with the patient/guardian the need to see the primary care provider for further evaluation of the symptoms. ED course: MRI neg as well, CT/CTA head and neck negative, will dc home with instructions for BP ledger/journal and pcp f/u for further BP management. Will likely have to start taking medication daily instead of PRN basis. . 10/03 07:28 Order name: Basic Metabolic Panel; Complete Time: 08:12 10/03 07:28 Order name: CBC with Diff; Complete Time: 07:55 rn 10/03 07:28 Order name: High Sensitivity Troponin; Complete Time: 08: rn 10/03 07:28 Order name: Protime (+inr); Complete Time: 07:55 rn 10/03 07:28 Order name: Ptt, Activated; Complete Time: 07:55 rn 10/03 07:28 Order name: Test, Urine; Complete Time: 08:12 10/03 07:54 Order name: Glucose, Ancillary Testing; Complete Time: 07:55 EDMS 10/03 07:55 Order name: Urinalysis w/ reflexes; Complete Time: 08:12 10/03 07:28 Order name: CT Head Brain wo Cont; Complete Time: 08:12 rn 10/03 07:28 Order name: Head Angio CT; Complete Time: 08:12 10/03 07:28 Order name: Neck Angio CT; Complete Time: 08:13 10/03 08:33 Order name: Brain Wo Cont MRI; Complete Time: 09:11 rn 10/03 07:28 Order name: EKG; Complete Time: 07:29 rn 10/03 07:28 Order name: Accucheck; Complete Time: rn 10/03 07:28 Order name: Cardiac monitoring; Complete Time: : rn 10/03 07:28 Order name: EKG - Nurse/Tech; Complete Time: 07:34 rn 10/03 07:28 Order name: IV Saline Lock; Complete Time: rn 10/03 07:28 Order name: Labs collected and sent; Complete Time: rn 10/03 07:28 Order name: O2 Per Protocol; Complete Time: : rn 10/03 07:28 Order name: O2 Sat Monitoring; Complete Time: rn 10/03 07:28 Order name: Stroke Swallow Screen; Complete Time: : rn EC:59 Rate is 84 beats/min. Rhythm is regular. QRS [place] is Normal. TX interval is normal. QRS rn interval is normal. QT interval is normal. No Q waves. T waves are Normal. No ST changes noted. Clinical impression: Normal ECG. Interpreted by me. Reviewed by me. Administered Medications: No medications were administered Point of Care Testing: Blood Glucose: 07:44 Blood Glucose: 133 mg/dL; hb Ranges: Critical Glucose Levels:Adult <50 mg/dl or >400 mg/dl <40 mg/dl or >180 mg/dl Disposition Summary: 10/03/22 09:14 Discharge Ordered Location: Home rn Problem: new rn Symptoms: have improved rn Condition: Stable rn Diagnosis - Essential (primary) hypertension rn - Paresthesia of skin rn Followup: rn - With: Private Physician - When: As needed - Reason: Recheck today's complaints, Re-evaluation by your physician Discharge Instructions: - Discharge Summary Sheet rn - Hypertension, Adult rn - Paresthesia rn - Managing Your Hypertension rn Forms: - Medication Reconciliation Form rn - Thank You Letter rn - Antibiotic technology development intern - Prescription Opioid Use rn - Patient Portal Instructions rn - Leadership Thank You Letter rn Signatures: Dispatcher [employer] Tani Coe MD MD rn Leal, Jahala, RN RN jl7
[2022-10-03 10:02] VITALS: TEMP 97.9
[2022-10-03 10:03] VITALS: BP 158/91; O2SAT 99
--- NOTE | 2022-10-06 18:09 | EKG ---
Test Date: 2022-10-03 Test Time: 07:33:42 Assisted Living Executive Director: BRETT MEASUREMENT RESULTS: Intervals: Rate: 84 PA: 168 QRSD: 92 QT: 384 QTc: 453 [place]: P: 57 PA: 168 QRS: -22 T: 36 INTERPRETIVE STATEMENTS: Normal sinus rhythm Normal ECG No previous ECG available for comparison Electronically Signed On 10-06-22 18:00:27 CDT by Jeff Diaz
== END 2022-10-03 09:35 | disposition home or self-care (01) ==
LOC: ER 07:02
DX: I10 Essential (primary) hypertension (principal); R20.2 Paresthesia of skin
CPT/HCPCS: 36415; 70450; 70496; 70498; 70551; 80048; 81003; 81025; 82947; 84484; 85025; 85610; 85730; 93005; 99284; Q9967

== ENCOUNTER 2023-07-01 23:12 | Emergency (ER) | payer SELFPAY ==
--- OUTSIDE RECORDS SUMMARY | 2023-07-01 23:15 | XMS REPORT | Continuity of Care Document ---
Author Name Unknown Address [address] [place] [address] [facility] thconnect Address [address] [place] [address] Care Team Providers Care Continuous Towel Roller Name Role Phone DANUTA OSEI Primary Care Physician Unav ailable DANUTA OSEI Attending Clinician Unavail able Sea Danuta DE JESUS Attending Clinician + Visit, [facility] Nurse Attending Clinician Unava ilable Doctor Unassigned, [place] Attending Clinician U navailEdgardo Amos DO Attending Clinician [phone] Daisha Hall Attending Clinician + [phone] DAISHA WILL Attending Clinician Unavailab Natalie Gutierrez Attending Clinician [phone] Chivo Harrington MD Attending Clinician [phone] [facility] Resident Attending Clinician Unavailab Connie Hawkins MD Attending Clinician [phone] CONNIE SCALES Attending Clinician Unavailable Danuta Culver RN Attending Clinician Unavailab Leonor Gamboa Attending Clinician [phone] LEONOR GARZA Attending Clinician Unavailabl e Payers Payer Name Policy Type Policy Number Effective Date Expirati on Date Source [employer] DEANDRA 101-150% [id number] 2022 00:00:00 Problems Condition Name Condition Details Condition Category Status Onset Date Resolution Date Last Treatment Date Treating Clinician Comments Source Endometrio sis in scar Endometrio sis in scar Disease Active 09-08 00:00: 00 [facility] Essential hypertensi on, benign Essential hypertensi on, benign Disease Active 08-23 00:00: 00 [facility] Contracept kylie management Contracept kylie management Disease Active 06-09 00:00: 00 [facility] Obesity (BMI 30-39.9) Obesity (BMI 30-39.9) Disease Active 2-12 00:00: 00 [facility] Tetanus, diphtheria , and acellular pertussis (Tdap) vaccinatio n declined Tetanus, diphtheria , and acellular pertussis (Tdap) vaccinatio n declined Disease Active 1-16 00:00: 00 [facility] History of anxiety History of anxiety Disease Active 18 00:00: 00 [facility] Other depression Other depression Disease Active 1-25 00:00: 00 [facility] Pain pelvic Pain pelvic Disease Active 1-20 00:00: 00 [facility] Allergies, Adverse Reactions, Alerts Allergy Name Allergy Type Status Severity Reaction(s) Onset Date Inactive Date Treating Clinician Comments Source NO KNOWN ALLERGIE S Drug Class Active [facility] Social History Social Habit Start Date Stop Date Quantity Comments Source Exposure to SARS-CoV-2 (event) 2022-04-15 00:00:00 2022-04-25 08:46:00 Not sure [facility] Alcohol intake 2022-04-25 00:00:00 2022-04-25 00:00:00 0 /d [facility] Tobacco Comment 2022-04-25 00:00:00 2022-04-25 00:00:00 denies smoke exposure [facility] Tobacco use and exposure 2022-04-25 00:00:00 2022-04-25 00:00:00 Smokeless tobacco non-user [facility] Sex Ass[birth year] At 1985 00:00:00 1985 00:00:00 [facility] Smoking Status Start Date Stop Date Source Never smoked tobacco [facility] Medications Ordered Medication Name Filled Medication Name Start Date Stop Date Current Medication? Ordering Clinician Indication Dosage Frequency Signature (SIG) Comments Components Source norgestimat e-ethinyl estradiol (SPRINTEC, 28, ORAL) 04-25 08:52: 07 04-25 00:00 :00 No Take by mouth. [facility] carvediloL 3.125 mg tablet 04-25 08:48: 30 Yes 3.125mg Take 1 tablet by mouth in the morning and 1 tablet in the evening. Take with meals. [facility] atorvastati n 20 mg tablet 04-25 08:48: 30 Yes 20mg Take 1 tablet by mouth at bedtime. [facility] norethindro ne 0.35 mg tablet 04-25 00:00: 00 Yes [id number] 1{tbl} Take 1 tablet by mouth in the morning. [facility] norethindro ne 0.35 mg tablet 02-19 00:00: 00 04-25 00:00 :00 No [id number] 1{tbl} Take 1 tablet by mouth in the morning. [facility] atorvastati n 20 mg tablet 03-15 08:57: 33 Yes 20mg Take 20 mg by mouth at bedtime. [facility] carvediloL 3.125 mg tablet 03-15 08:56: 50 Yes 3.125mg Take 3.125 mg by mouth 2 (two) times daily with meals. [facility] norgestimat e-ethinyl estradiol (SPRINTEC, 28, ORAL) 03-15 08:19: 08 Yes Take by mouth. [facility] norethindro ne 0.35 mg tablet 2022-0 1-28 00:00: 00 02-19 00:00 :00 No [id number] 1{tbl} Take 1 tablet by mouth daily. [facility] Vital Signs Vital Name Observation Time Observation Value Comments Nga cheung Systolic blood pressure 2022-04-25 15:12:00 140 mm[Hg] [facility] Diastolic blood pressure 2022-04-25 15:12:00 83 mm[Hg] [facility] Heart rate 2022-04-25 14:47:00 83 /min [facility] Body temperature 2022-04-25 14:47:00 36.28 Anjali [facility] Respiratory rate 2022-04-25 14:47:00 18 /min [facility] Body height 2022-04-25 14:47:00 154.9 cm [facility] Body weight 2022-04-25 14:47:00 91.899 kg [facility] BMI 2022-04-25 14:47:00 38.28 kg/m2 [facility] Systolic blood pressure 2022-02-24 22:23:00 128 mm[Hg] manual [facility] Diastolic blood pressure 2022-02-24 22:23:00 88 mm[Hg] manual [facility] Heart rate 2022-02-24 22:21:00 102 /min [facility] Body temperature 2022-02-24 22:21:00 36.39 Anjali [facility] Respiratory rate 2022-02-24 22:21:00 18 /min [facility] Body weight 2022-02-24 22:21:00 88.043 kg [facility] BMI 2022-02-24 22:21:00 36.67 kg/m2 [facility] Systolic blood pressure 2021-06-06 13:24:00 136 mm[Hg] [facility] Diastolic blood pressure 2021-06-06 13:24:00 88 mm[Hg] [facility] Heart rate 2021-06-06 13:23:00 88 /min [facility] Body temperature 2021-06-06 13:23:00 36.72 Anjali [facility] Respiratory rate 2021-06-06 13:23:00 20 /min [facility] Body height 2021-06-06 13:23:00 154.9 cm [facility] Body weight 2021-06-06 13:23:00 89.585 kg [facility] BMI 2021-06-06 13:23:00 37.32 kg/m2 [facility] Procedures Procedure Date / Time Performed Performing Clinicia n Source CONSENT/REFUSAL FOR DIAGNOSIS AND TREATMENT 2022-02-24 21:06:47 Doctor Unassigned, [place] [facility] ASSIGNMENT OF BENEFITS 2022-02-24 21:06:27 Docto r Unassigned, [place] [facility] Encounters Start Date/Time End Date/Time Encounter Type Admission Type Attending [facility] Care Facility Care Department Encounter ID Source 2022-04-25 08:15:00 2022-04-25 09:35:47 Outpatient R DANUTA OSEI [facility] [id number] [facility] 2022-04-25 08:15:00 2022-04-25 09:35:47 Office Visit Danuta Osei [facility] ANALYTICAL CONSULTANT [facility] 1..840.114 350.1.13.10 4.2.7.2.686 [id number] [facility] 2022-02-24 15:30:00 2022-02-24 16:02:50 Nurse Visit Visit, [facility] Nurse Danuta Osei [facility] CONSULTANT [facility] ..840.114 350.1.13.10 4.2.7.2.686 [id number] [facility] 2022-02-24 15:30:00 2022-02-24 15:30:00 Outpatient DANUTA FOSTER [facility] [id number] [facility] 2022-02-24 15:30:00 2022-02-24 15:30:00 Outpatient R DANUTA OSEI [facility] [id number] [facility] 2022-02-24 15:00:00 2022-02-24 15:00:00 Outpatient R DANUTA OSEI [facility] [id number] [facility] 2022-02-24 00:00:00 2022-02-24 00:00:00 Telephone Danuta Osei [facility] ANALYTICAL CONSULTANT [facility] 1.2.840.114 350.1.13.10 4.2.7.2.686 [id number] [facility] 2022-02-24 00:00:00 2022-02-24 00:00:00 Orders Only Doctor Unassigned, [place] [facility] 1.2.840.114 350.1.13.10 4.2.7.2.686 [id number] [facility] 2022-02-19 00:00:00 2022-02-19 00:00:00 Telephone Danuta Osei [facility] ANALYTICAL CONSULTANT [facility] 1.2.840.114 350.1.13.10 4.2.7.2.686 [id number] [facility] 2021-06-06 08:15:00 2021-06-06 09:12:10 Office Visit Danuta Osei [facility] A[facility]TICAL CONSULT[facility] 1.2.840.114 350.1.13.10 4.2.7.2.686 [id number] [facility] 2021-06-06 08:15:00 2021-06-06 09:12:10 Outpatient R DANUTA OSEI [facility] [id number] [facility] 2021-06-06 08:15:00 2021-06-06 08:15:00 Outpatient R DANUTA OSEI [facility] [id number] [facility] 2021-06-06 08:15:00 2021-06-06 08:15:00 Outpatient R DANUTA OSEI [facility] [id number] [facility] 2021-06-06 08:15:00 2021-06-06 08:15:00 Outpatient R DANUTA OSEI [facility] [id number] [facility] 2021-03-15 08:00:00 2021-03-15 09:27:22 Outpatient R DANUTA OSEI [facility] [id number] [facility] 2021-03-15 08:00:00 2021-03-15 09:27:22 Office Visit Danuta Osei [facility] ANALYTICAL CONSULTANT [facility] 1..114 350.1.13.10 4.2.7.2.686 [id number] [facility] 2021-03-15 00:00:00 2021-03-15 00:00:00 Orders Only Doctor Unassigned, [place] [facility] 1..114 350.1.13.10 4.2.7.2.686 [id number] [id number] [facility] 2020-05-07 00:00:00 2020-05-07 00:00:00 Patient Outreach Edgardo Boateng [facility] 1..114 350.1.13.10 4.2.7.2.686 [id number] [facility] 2020-04-24 08:27:42 2020-04-24 10:08:38 Office Visit Daisha Will [facility] ANALYTICAL CONSULTANT [facility] 1..114 350.1.13.10 4.2.7.2.686 [id number] [facility] 2020-04-24 08:15:00 2020-04-24 08:15:00 Outpatient R DAISHA WILL [facility] [id number] [facility] 2020-04-24 07:45:00 2020-04-24 07:45:00 Outpatient R DAISHA WILL [facility] [id number] [facility] 2020-04-24 00:00:00 2020-04-24 00:00:00 Orders Only Doctor Unassigned, [place] [facility] 1..114 350.1.13.10 4.2.7.2.686 [id number] [facility] 2019-11-14 00:00:00 2019-11-14 00:00:00 Telephone [facility] 1..114 350.1.13.10 4.2.7.2.686 [id number] [facility] 2019-11-07 15:00:00 2019-11-07 15:00:00 Outpatient R SEA DANUTA [facility] [id number] [facility] 2019-10-27 00:00:00 2019-10-27 00:00:00 Telephone [facility] 1..114 350.1.13.10 4.2.7.2.686 [id number] 2019-10-27 00:00:00 2019-10-27 00:00:00 Telephone [facility] 1..114 350.1.13.10 4.2.7.2.686 [id number] 113 [id number] [facility] 2019-10-04 00:00:00 2019-10-04 00:00:00 Telephone Har[place], [facility] 1..114 350.1.13.10 4.2.7.2.686 [id number] 2019-10-04 00:00:00 2019-10-04 00:00:00 Telephone [facility] 1..114 350.1.13.10 4.2.7.2.686 [id number] [facility] 2019-09-19 00:00:00 2019-09-19 00:00:00 Telephone [facility] 1.2.840.114 350.1.13.10 4.2.7.2.686 [id number] 2019-09-19 00:00:00 2019-09-19 00:00:00 Telephone [facility] 1.2.840.114 350.1.13.10 4.2.7.2.686 [id number] [facility] 2019-09-12 00:00:00 2019-09-12 00:00:00 Telephone [facility] 1.2.840.114 350.1.13.10 4.2.7.2.686 [id number] [facility] 2019-09-12 00:00:00 2019-09-12 00:00:00 Telephone [facility] 1.2.840.114 350.1.13.10 4.2.7.2.686 [id number] 2019-09-09 10:47:23 2019-09-09 12:32:13 Office Visit Rory [facility] Resident Connie Scales [facility] 1.2.840.114 350.1.13.10 4.2.7.2.686 [id number] [facility] 2019-09-09 10:47:23 2019-09-09 12:32:13 Office Visit Rory [facility] 1.2.840.114 350.1.13.10 4.2.7.2.686 [id number] 2019-09-09 10:00:00 2019-09-09 10:00:00 Outpatient R CONNIE SCALES [facility] [id number] [facility] 2019-09-08 00:00:00 2019-09-08 00:00:00 Telephone Danuta Osei [facility] ANALYTICAL CONSULTANT [facility] 1.2.840.114 350.1.13.10 4.2.7.2.686 [id number] [facility] 2019-09-08 00:00:00 2019-09-08 00:00:00 Nurse Triage Danuta Culver [facility] 1.2.840.114 350.1.13.10 4.2.7.2.686 [id number] [facility] 2019-09-08 00:00:00 2019-09-08 00:00:00 Telephone Danuta Osei [facility] ANALYTICAL CONSULTANT [facility] 1.2.840.114 350.1.13.10 4.2.7.2.686 [id number] [facility] 2019-08-30 15:16:04 2019-08-30 16:18:12 Office Visit Leonor Garza [facility] ANALYTICAL CONSULTANT [facility] 1.2.840.114 350.1.13.10 4.2.7.2.686 [id number] [facility] 2019-08-30 15:15:00 2019-08-30 15:15:00 Outpatient R LEONOR GARZA [facility] [id number] [facility] 2019-08-30 00:00:00 2019-08-30 00:00:00 Telephone Danuta Osei [facility] ANALYTICAL CONSULTANT [facility] 1.2.840.114 350.1.13.10 4.2.7.2.686 [id number] [facility] 2019-08-24 14:19:31 2019-08-24 15:18:06 Office Visit Danuta Osei [facility] ANALYTICAL CONSULTANT [facility] 1.2.840.114 350.1.13.10 4.2.7.2.686 [id number] [facility] 2019-08-24 14:15:00 2019-08-24 14:15:00 Outpatient R DANUTA OSEI [facility] [id number] [facility] 2019-08-24 00:00:00 2019-08-24 00:00:00 Orders Only Doctor Unassigned, [place] [facility] 1.2840.114 350.1.13.10 4.2.7.2.686 [id number] [facility] 2019-08-24 00:00:00 2019-08-24 00:00:00 Orders Only Doctor Unassigned, [place] [facility] 1.2840.114 350.1.13.10 4.2.7.2.686 [id number] 2019-08-11 14:22:05 2019-08-11 16:16:40 Office Visit Danuta Osei [facility] ANALYTICAL CONSULTANT [facility] 1.2.840.114 350.1.13.10 4.2.7.2.686 [id number] [facility] 2019-08-11 14:15:00 2019-08-11 14:15:00 Outpatient DANUTA FOSTER [facility] [id number] [facility] 2019-08-11 00:00:00 2019-08-11 00:00:00 Orders Only Doctor Unassigned, [place] [facility] 1.2840.114 350.1.13.10 4.2.7.2.686 [id number] [facility] 2019-07-28 09:45:00 2019-07-28 09:45:00 Outpatient DANUTA FOSTER [facility] [id number] [facility] 2019-07-28 09:00:00 2019-07-28 09:00:00 Outpatient DANUTA FOSTER [facility] [id number] [facility] 2019-03-01 10:30:53 2019-03-01 11:32:23 Office Visit Danuta Osei [facility] ANALYTICAL CONSULTANT [facility] 1.2.840.114 350.1.13.10 4.2.7.2.686 [id number] [facility]
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
[2023-07-02 00:15] VITALS: BP 194/102; TEMP 97.5; O2SAT 99
== END 2023-07-01 23:38 | disposition home or self-care (01) ==
LOC: ER 23:12
DX: Z77.098 Contact with and (suspected) exposure to other hazardous, chiefly nonmedicinal, chemicals (principal)